=== PATIENT | male | born 1955 | race Caucasian/White ===

== ENCOUNTER 2020-09-22 15:52 | Emergency (ER) | payer OTHER, SELFPAY ==
[2020-09-22 16:00] VITALS: BP 189/94; PULSE 72; RESP 15; TEMP 36.9; O2SAT 98; BMI 25.6
--- NOTE | 2020-09-22 16:13 | ED.NAVMDI ---
HPI - Nausea/Vomiting/Diarrhea General Chief complaint: Nausea/Vomiting/Diarrhea Stated complaint: Throwing Up On Daily Basis, High HR Time Seen by Provider: 09/22/20 16:13 Source: patient Mode of arrival: Ambulatory Limitations: no limitations History of Present Illness HPI Narrative: Patient is a 65-year-old male here for evaluation of several months of was initially described as throwing up. It appears that he has had some chest congestion any gets quite a bit of saliva which causes him to ?[place] ?and cough which then eventually causes him to throw up. He also has apparently had episodes where his heart rate has been fast. He just completed a Holter monitor but does not have the results of this. He also has a CT scan scheduled ordered by his primary doctor in a couple days. He stated that he was told by his primary doctor to come to the emergency department if his symptoms do not resolve. Related Data Previous Rx's Medication Instructions Recorded lisinopril-hydrochlorothiazide 1 tab PO QAM #90 tab 11/18/16 metoprolol succinate [Toprol XL] 25 mg PO QAM #90 ter 11/18/16 Allergies Allergy/AdvReac Type Severity Reaction Status Date / Time Penicillins [PENICILLINS] Allergy Mild Verified 09/22/20 16:08 Review of Systems Constitutional Constitutional: Denies fever(s) and Denies headache(s) ENT Ears, Nose, Mouth, and Throat: Denies headache(s) Cardiovascular Cardiovascular: Denies chest pain Respiratory Respiratory: Reports cough and Reports excessive phlegm production Gastrointestinal Gastrointestinal: Denies change in bowel habits and Reports vomiting Genitourinary Genitourinary: Denies dysuria Genitourinary: Denies dysuria Musculoskeletal Musculoskeletal: Denies arthralgias and Denies myalgias Integumentary/Breasts Skin/Breast: Denies rash Neurologic Neurologic: Denies behavioral changes and Denies headache(s) Psychiatric Psychiatric: Denies behavioral changes Hematologic/Lymphatic On Anticoagulants: No Allergic/Immunologic Allergic/Immunologic: Denies urticaria Patient History Medical History HTN (hypertension) Family History Mother Diabetes mellitus Stroke Cancer Sister Cancer Social History marital status: household members: spouse occupational status: employed Smoking Status: Never smoker alcohol intake: current substance use type: does not use Smoking Status: Never smoker alcohol intake frequency: 3 or more drinks per day Substance Use Type: marijuana Exam Initial Vital Signs Initial Vital Signs: Vital Signs Temperature 98.5 F 09/22/20 16:00 Pulse Rate 72 09/22/20 16:00 Respiratory Rate 15 09/22/20 16:00 Blood Pressure 189/94 H 09/22/20 16:00 Pulse Oximetry 98 09/22/20 16:00 Const General: cooperative, comfortable, well developed and well groomed Limitations: mental status not altered HENMT Head: normal to inspection and normocephalic Resp Effort & Inspection: normal respiratory effort Auscultation: clear to auscultation bilaterally Cardio Rate: regular rate Rhythm: regular rhythm GI Inspection: non-distended Skin Lesions: no lesions Rashes: no rashes Neuro General: patient alert and patient awake Cognition: normal cognition Speech: speech normal Extrem General: capillary refill normal Psych Appearance: grossly normal and well kempt Course Orders Ordered: ED Orders 09/22/20 16:22 XR chest 1V Stat EKG-12 Lead Stat 09/22/20 17:07 Complete Blood Count AUTO DIFF Stat Comprehensive Metabolic Panel Stat Lipase Stat Vital Signs Vital signs: Vital Signs - 8 hr 09/22/20 16:00 09/22/20 16:23 09/22/20 16:30 Temperature 98.5 F Pulse Rate 72 67 65 Respiratory Rate 15 12 Blood Pressure 189/94 H Pulse Oximetry 98 98 98 09/22/20 17:00 Temperature Pulse Rate 62 Respiratory Rate 16 Blood Pressure Pulse Oximetry 96 MDM - Nausea/Vomiting/Diarrhea Lab Data Attestation: I reviewed the patient's lab results. Result diagrams: 09/22/20 17:07 09/22/20 17:07 Labs: Lab Results 09/22/20 09/22/20 Range/Units 17:07 17:07 WBC 5.1 (4.5-11.0) X10^3/uL RBC 4.69 (4.5-5.9) X10^6/uL Hgb 13.9 (13.5-17.5) g/dL Hct 42.4 (41-53) % MCV 90.5 (80-100) fL MCH 29.7 (26-34) PG MCHC 32.8 (30-36) % RDW 15.6 H (11.6-14.8) % Plt Count 159 (150-400) X10^3/uL Neut % (Auto) 62.7 (50-75) % Lymph % (Auto) 21.5 L (25-40) % Andrews % (Auto) 12.9 (3-14) % Eos % (Auto) 1.4 L (2-4) % Baso % (Auto) 1.5 (0-2) % Neut # (Auto) 3200 (7938-0515) /uL Lymph # (Auto) 1100 (6745-8754) /uL Andrews # (Auto) 700 (0-900) /uL Eos # (Auto) 100 (0-450) /uL Baso # (Auto) 100 (0-100) /uL Sodium 138 (137-145) mmol/L Potassium 4.5 (3.4-5.1) mmol/L Chloride 100 (98-107) mmol/L Carbon Dioxide 27 (22-32) mmol/L BUN 12 (9-20) mg/dL Creatinine 0.66 (0.66-1.25) mg/dL Estimated GFR > 60.0 (>60) mL/min BUN/Creatinine Ratio 18.2 (6-22) Glucose 122 H (80-110) mg/dL Calcium 9.2 (8.4-10.2) mg/dL Total Bilirubin 0.5 (0.2-1.3) mg/dL AST 148 H (17-59) IU/L ALT 135 H (<50) IU/L Alkaline Phosphatase 44 (38-126) U/L Total Protein 7.6 (6.3-8.2) g/dL Albumin 4.4 (3.5-5.0) g/dL Globulin 3.2 (1.7-4.1) g/dL Albumin/Globulin Ratio 1.4 (1.0-2.8) Lipase 455 H (23-300) U/L Imaging Data Chest x-ray: Radiologist's Impression: [address] [id number] ReportSigned Patient: Maximus Govea RMR#: [id number]: 6Acct:[id number]/Sex: 65 / MDate of Service: 09/22/20Loc: EDAccession Number: [id number] Procedure: XR chest 1V Ordering Provider: Frederick Nicholson D.O. PROCEDURE: XR CHEST 1V INDICATIONS: Chronic cough TECHNIQUE: One view of the chest was acquired. COMPARISON: None. FINDINGS: Surgical changes and devices: None. Lungs and pleura: Lungs are clear. No pleural effusions or pneumothorax. Mediastinum: Mediastinal contours appear normal. Heart size is normal. Bones and chest wall: No suspicious bony lesions. Overlying soft tissues appear unremarkable. IMPRESSION: No acute cardiopulmonary process demonstrated radiographically. Dictated by: Khang Gagnon M.D. on 09/22/2020 at 16:41 Approved by: Khang Gagnon M.D. on 09/22/2020 at 16:41 ECG Data Attestation: I personally reviewed and interpreted this ECG as follows: Prior ECG tracings: not available for review Interpretation: Sinus rhythm Ventricular rate is 64 Normal axis Normal QRS Normal QTC No ST T wave changes MDM Narrative Medical decision making narrative: Patient's symptoms have been going on for over a year. He has already been workup by his primary provider. He has a CT scan ordered already. His chest x-ray is unremarkable. His labs are relatively unremarkable. I feel no further workup is needed in the emergency department. He has already had a Holter monitor that is waiting for the results for. Patient was instructed to contact his primary keep all of his scheduled medical appointments. Discharge Plan Departure Patient Disposition: Home Clinical Impression: Cough, Vomiting Instructions: Cough (Alternative Therapy) Activity Restrictions/Additional Instructions: Recommend that you keep all of your scheduled medical appointments in continue to take all of your medications as directed. Contact your primary provider for follow-up Prescriptions: No Action lisinopril-hydrochlorothiazide 20 MG/12.5 MG tablet 1 tab PO QAM Qty: 90 RF: 1 metoprolol succinate [Toprol XL] 25 MG tablet extended release 24 hr 25 mg PO QAM Qty: 90 RF: 1 Referrals: Saud Bush MD [Primary Care Provider] -
--- NOTE | 2020-09-22 16:22 | DI.RAD.S_ITS ---
PROCEDURE: XR CHEST 1V INDICATIONS: Chronic cough TECHNIQUE: One view of the chest was acquired. COMPARISON: None. FINDINGS: Surgical changes and devices: None. Lungs and pleura: Lungs are clear. No pleural effusions or pneumothorax. Mediastinum: Mediastinal contours appear normal. Heart size is normal. Bones and chest wall: No suspicious bony lesions. Overlying soft tissues appear unremarkable. IMPRESSION: No acute cardiopulmonary process demonstrated radiographically. Dictated by: Khang Gagnon M.D. on 09/22/2020 at 16:41 Approved by: Khang Gagnon M.D. on 09/22/2020 at 16:41
[2020-09-22 16:23] VITALS: PULSE 67; O2SAT 98
[2020-09-22 16:30] VITALS: PULSE 65; RESP 12; O2SAT 98
[2020-09-22 17:00] VITALS: PULSE 62; RESP 16; O2SAT 96
[2020-09-22 17:18] LABS: Add Manual Diff / Slide Review NO; Basophils Absolute Auto 100 /uL (0-100); Basophils Percent Auto 1.5 % (0-2); Eosinophils Absolute Auto 100 /uL (0-450); Eosinophils Percent Auto 1.4 % (2-4); Hematocrit 42.4 % (41-53); Hemoglobin 13.9 g/dL (13.5-17.5); Lymphocytes Absolute Auto 1100 /uL (1100-4500); Lymphocytes Percent Auto 21.5 % (25-40); Mean Corpuscular HGB Conc 32.8 % (30-36); Mean Corpuscular Hemoglobin 29.7 PG (26-34); Mean Corpuscular Volume 90.5 fL (80-100); Monocytes Absolute Auto 700 /uL (0-900); Monocytes Percent Auto 12.9 % (3-14); Neutrophils Absolute Auto 3200 /uL (1500-7000); Neutrophils Percent Auto 62.7 % (50-75); Platelet Count 159 X10^3/uL (150-400); Red Blood Cell Count 4.69 X10^6/uL (4.5-5.9); Red Cell Distribution Width 15.6 % (11.6-14.8); White Blood Cell Count 5.1 X10^3/uL (4.5-11.0)
--- NOTE | 2020-09-22 17:28 | PC.NURSE ---
Reports coughing induced vomiting x 6 months. States It just comes out of nowhere. Denies pain.
[2020-09-22 17:30] VITALS: BP 168/86; PULSE 65; RESP 18; O2SAT 97
[2020-09-22 17:40] LABS: Alanine Aminotransferase 135 IU/L (<50); Albumin 4.4 g/dL (3.5-5.0); Albumin Globulin Ratio 1.4 (1.0-2.8); Alkaline Phosphatase 44 U/L (38-126); Aspartate Aminotransferase 148 IU/L (17-59); BUN Creatinine Ratio 18.2 (6-22); Bilirubin Total 0.5 mg/dL (0.2-1.3); Blood Urea Nitrogen 12 mg/dL (9-20); Calcium 9.2 mg/dL (8.4-10.2); Carbon Dioxide 27 mmol/L (22-32); Chloride 100 mmol/L (98-107); Estimated Glomerular Filt Rate > 60.0 mL/min (>60); Globulin 3.2 g/dL (1.7-4.1); Glucose 122 mg/dL (80-110); HEMOLYSIS < 15 (0-50); Lipase 455 U/L (23-300); Potassium 4.5 mmol/L (3.4-5.1); Sodium 138 mmol/L (137-145); Total Protein 7.6 g/dL (6.3-8.2)
[2020-09-22 18:00] VITALS: BP 173/97; PULSE 64; RESP 26; O2SAT 97
== END 2020-09-22 18:25 | disposition home or self-care (01) ==
PROVIDERS: Emergency Provider Emergency Medicine; PCP Family Medicine
DX: R05 Cough (principal); R11.10 Vomiting, unspecified
CPT/HCPCS: 36415; 71045; 80053; 83690; 85025; 93005; 93010; 99283; 99284

== ENCOUNTER → 2020-09-27 14:40 | Outpatient (CLI) | payer OTHER, SELFPAY ==
--- NOTE | 2020-09-27 14:41 | DI.CT.S_ITS ---
PROCEDURE: CT ABDOMEN PELVIS W CON INDICATIONS: Nausea with vomiting, unspecified TECHNIQUE: After the administration of oral and intravenous contrast, 5 mm thick sections acquired from the diaphragms to the symphysis. 5 mm thick coronal and sagittal reformats were performed. For radiation dose reduction, the following was used: automated exposure control, adjustment of mA and/or kV according to patient size. COMPARISON: None. FINDINGS: Image quality: Excellent. ABDOMEN: Lung bases: Lung bases are clear. Heart size is normal. Solid organs: Liver is normal in size and enhancement, but the liver is prominently fatty infiltrated. Gallbladder appears normal. Biliary system is non-dilated. Pancreas enhances normally. Spleen is normal in size and enhancement. No adrenal nodules. Kidneys are normal in size and enhancement, without hydronephrosis. Appears normal Peritoneum and bowel: Stomach, small bowel, and colon loops are normal in caliber and wall thickness. No free fluid or air. Nodes and vessels: No retroperitoneal or mesenteric adenopathy. Aorta and inferior vena cava are normal in caliber. Miscellaneous: No ventral hernias. PELVIS: Genitourinary: Bladder wall thickness is normal. Miscellaneous: No inguinal hernias or adenopathy. Bones: No suspicious bony lesions. No vertebral body compression fractures. IMPRESSION: Prominent hepatic steatosis, no evidence of portal hypertension at this time. No ascites found. Throughout the abdomen and pelvis there is no sign of intestinal obstruction or perforation. Biliary system appears normal. Dictated by: Abisai Oneill M.D. on 09/27/2020 at 17:14 Approved by: Abisai Oneill M.D. on 09/27/2020 at 17:16
== END ==
PROVIDERS: PCP Family Medicine; Referring Provider Family Medicine; Visit Provider Family Medicine
DX: R11.2 Nausea with vomiting, unspecified (principal); K76.0 Fatty (change of) liver, not elsewhere classified
CPT/HCPCS: 74177; Q9967

== ENCOUNTER → 2020-11-22 10:34 | Outpatient (CLI) | payer OTHER, SELFPAY ==
[2020-11-22 20:50] LABS: Alanine Aminotransferase 187 IU/L (<50); Albumin 4.5 g/dL (3.5-5.0); Albumin Globulin Ratio 1.5 (1.0-2.8); Alkaline Phosphatase 36 U/L (38-126); Aspartate Aminotransferase 304 IU/L (17-59); BUN Creatinine Ratio 27.6 (6-22); Bilirubin Total 1.1 mg/dL (0.2-1.3); Blood Urea Nitrogen 21 mg/dL (9-20); Calcium 9.7 mg/dL (8.4-10.2); Carbon Dioxide 26 mmol/L (22-32); Chloride 99 mmol/L (98-107); Cholesterol 233 mg/dL (140-199); Estimated Glomerular Filt Rate > 60.0 mL/min (>60); Globulin 3.1 g/dL (1.7-4.1); Glucose 130 mg/dL (80-110); HDL Cholesterol 52 mg/dL (40-60); LDL Cholesterol Calculated 153 mg/dL (<100); Potassium 4.1 mmol/L (3.4-5.1); Sodium 137 mmol/L (137-145); Total Protein 7.6 g/dL (6.3-8.2); Triglycerides 140 mg/dL (35-150)
[2020-11-22 20:56] LABS: Microalbumin Urine Random 1.5 mg/dL (0-1.6)
[2020-11-22 20:57] LABS: Add Manual Diff / Slide Review NO; Basophils Absolute Auto 100 /uL (0-100); Basophils Percent Auto 1.3 % (0-2); Eosinophils Absolute Auto 100 /uL (0-450); Eosinophils Percent Auto 2.4 % (2-4); Hematocrit 41.4 % (41-53); Hemoglobin 13.5 g/dL (13.5-17.5); Lymphocytes Absolute Auto 700 /uL (1100-4500); Lymphocytes Percent Auto 16.9 % (25-40); Mean Corpuscular HGB Conc 32.7 % (30-36); Mean Corpuscular Hemoglobin 30.5 PG (26-34); Mean Corpuscular Volume 93.3 fL (80-100); Monocytes Absolute Auto 700 /uL (0-900); Monocytes Percent Auto 15.2 % (3-14); Neutrophils Absolute Auto 2800 /uL (1500-7000); Neutrophils Percent Auto 64.2 % (50-75); Platelet Count 140 X10^3/uL (150-400); Red Blood Cell Count 4.44 X10^6/uL (4.5-5.9); Red Cell Distribution Width 15.5 % (11.6-14.8); White Blood Cell Count 4.4 X10^3/uL (4.5-11.0)
[2020-11-22 20:59] LABS: HEMOLYSIS 73 (0-50)
[2020-11-22 21:35] LABS: Thyroid Stimulating Hormone 1.06 uIU/mL (0.47-4.68)
[2020-11-22 21:47] LABS: Microalbumi Creatinin Ratio Ur 4.2 ug/mg CR (<30)
== END ==
PROVIDERS: PCP Family Medicine; Visit Provider Physician Assistant
DX: G47.33 Obstructive sleep apnea (adult) (pediatric) (principal); I10 Essential (primary) hypertension; I48.0 Paroxysmal atrial fibrillation; R11.2 Nausea with vomiting, unspecified; R53.83 Other fatigue; R74.8 Abnormal levels of other serum enzymes
CPT/HCPCS: 80053; 80061; 82043; 82570; 84443; 85025

== ENCOUNTER → 2021-09-09 10:39 | Outpatient (CLI) | payer MEDICARE, SELFPAY ==
[2021-09-09 19:28] LABS: Add Manual Diff / Slide Review NO; Basophils Absolute Auto 0 /uL (0-100); Basophils Percent Auto 0.7 % (0-2); Eosinophils Absolute Auto 100 /uL (0-450); Eosinophils Percent Auto 2.7 % (2-4); Hematocrit 45.2 % (41-53); Hemoglobin 15.3 g/dL (13.5-17.5); Lymphocytes Absolute Auto 1100 /uL (1100-4500); Lymphocytes Percent Auto 23.9 % (25-40); Mean Corpuscular HGB Conc 33.9 % (30-36); Mean Corpuscular Hemoglobin 31.8 PG (26-34); Mean Corpuscular Volume 93.8 fL (80-100); Monocytes Absolute Auto 500 /uL (0-900); Monocytes Percent Auto 11.5 % (3-14); Neutrophils Absolute Auto 2900 /uL (1500-7000); Neutrophils Percent Auto 61.2 % (50-75); Platelet Count 138 X10^3/uL (150-400); Red Blood Cell Count 4.82 X10^6/uL (4.5-5.9); Red Cell Distribution Width 13.4 % (11.6-14.8); White Blood Cell Count 4.7 X10^3/uL (4.5-11.0)
[2021-09-09 19:41] LABS: Hemoglobin A1C% w Est Avg Glu 6.3 % (4.0-6.0)
[2021-09-09 19:45] LABS: Gamma Glutamyl Transpeptidase 96 U/L (15-73)
[2021-09-09 19:47] LABS: Alanine Aminotransferase 78 IU/L (<50); Albumin 4.5 g/dL (3.5-5.0); Albumin Globulin Ratio 1.4 (1.0-2.8); Alkaline Phosphatase 44 U/L (38-126); Aspartate Aminotransferase 81 IU/L (17-59); BUN Creatinine Ratio 15.2 (6-22); Bilirubin Total 0.7 mg/dL (0.2-1.3); Blood Urea Nitrogen 12 mg/dL (9-20); Calcium 9.6 mg/dL (8.4-10.2); Carbon Dioxide 35 mmol/L (22-32); Chloride 98 mmol/L (98-107); Estimated Glomerular Filt Rate > 60.0 mL/min (>60); Globulin 3.3 g/dL (1.7-4.1); Glucose 139 mg/dL (80-110); HEMOLYSIS < 15 (0-50); Lipase 302 U/L (23-300); Potassium 4.2 mmol/L (3.4-5.1); Sodium 138 mmol/L (137-145); Total Protein 7.8 g/dL (6.3-8.2)
== END ==
PROVIDERS: PCP Family Medicine; Visit Provider Family Medicine
DX: R74.8 Abnormal levels of other serum enzymes (principal); R73.9 Hyperglycemia, unspecified; F10.21 Alcohol dependence, in remission; I48.0 Paroxysmal atrial fibrillation
CPT/HCPCS: 80053; 82977; 83036; 83690; 85025

== ENCOUNTER → 2021-12-09 12:46 | Outpatient (CLI) | payer MEDICARE, SELFPAY ==
[2021-12-09 19:36] LABS: Hemoglobin A1C% w Est Avg Glu 6.5 % (4.0-6.0)
[2021-12-09 19:37] LABS: Alanine Aminotransferase 115 IU/L (<50); Albumin 4.6 g/dL (3.5-5.0); Albumin Globulin Ratio 1.5 (1.0-2.8); Alkaline Phosphatase 53 U/L (38-126); Aspartate Aminotransferase 132 IU/L (17-59); BUN Creatinine Ratio 17.1 (6-22); Bilirubin Total 0.7 mg/dL (0.2-1.3); Blood Urea Nitrogen 14 mg/dL (9-20); Calcium 9.6 mg/dL (8.4-10.2); Carbon Dioxide 29 mmol/L (22-32); Chloride 99 mmol/L (98-107); Cholesterol 277 mg/dL (140-199); Estimated Glomerular Filt Rate > 60 mL/min (>60); Glucose 139 mg/dL (80-110); HDL Cholesterol 54 mg/dL (40-60); HEMOLYSIS < 15 (0-50); LDL Cholesterol Calculated 164 mg/dL (<100); Potassium 3.8 mmol/L (3.4-5.1); Sodium 138 mmol/L (137-145); Total Protein 7.6 g/dL (6.3-8.2); Triglycerides 296 mg/dL (35-150)
[2021-12-09 19:42] LABS: Add Manual Diff / Slide Review NO; Basophils Absolute Auto 100 /uL (0-100); Basophils Percent Auto 1.1 % (0-2); Eosinophils Absolute Auto 100 /uL (0-450); Eosinophils Percent Auto 1.6 % (2-4); Hemoglobin 15.8 g/dL (13.5-17.5); Lymphocytes Absolute Auto 1200 /uL (1100-4500); Mean Corpuscular HGB Conc 33.7 % (30-36); Mean Corpuscular Hemoglobin 31.7 PG (26-34); Mean Corpuscular Volume 94.2 fL (80-100); Monocytes Absolute Auto 600 /uL (0-900); Monocytes Percent Auto 9.5 % (3-14); Neutrophils Absolute Auto 4000 /uL (1500-7000); Neutrophils Percent Auto 67.8 % (50-75); Platelet Count 166 X10^3/uL (150-400); Red Blood Cell Count 4.99 X10^6/uL (4.5-5.9); Red Cell Distribution Width 13.7 % (11.6-14.8)
[2021-12-09 20:29] LABS: Vitamin B12 737 pg/mL (239-931)
== END ==
PROVIDERS: PCP Family Medicine; Visit Provider Family Medicine
DX: E78.2 Mixed hyperlipidemia (principal); R73.9 Hyperglycemia, unspecified; G47.33 Obstructive sleep apnea (adult) (pediatric); I10 Essential (primary) hypertension; I48.0 Paroxysmal atrial fibrillation; R74.8 Abnormal levels of other serum enzymes; Z82.3 Family history of stroke
CPT/HCPCS: 80053; 80061; 82607; 83036; 85025

== ENCOUNTER → 2022-07-17 13:30 | Outpatient (CLI) | payer MEDICARE, SELFPAY ==
[2022-07-17 20:02] LABS: Add Manual Diff / Slide Review NO; Alanine Aminotransferase 41 IU/L (<50); Albumin 4.5 g/dL (3.5-5.0); Albumin Globulin Ratio 1.3 (1.0-2.8); Alkaline Phosphatase 55 U/L (38-126); Aspartate Aminotransferase 60 IU/L (17-59); BUN Creatinine Ratio 12.7 (6-22); Basophils Absolute Auto 100 /uL (0-100); Basophils Percent Auto 1.1 % (0-2); Bilirubin Total 0.9 mg/dL (0.2-1.3); Blood Urea Nitrogen 9 mg/dL (9-20); Calcium 9.5 mg/dL (8.4-10.2); Carbon Dioxide 23 mmol/L (22-32); Chloride 105 mmol/L (98-107); Cholesterol 174 mg/dL (140-199); Eosinophils Absolute Auto 100 /uL (0-450); Eosinophils Percent Auto 1.6 % (2-4); Estimated Glomerular Filt Rate > 60 mL/min (>60); Globulin 3.6 g/dL (1.7-4.1); Glucose 120 mg/dL (80-110); HDL Cholesterol 54 mg/dL (40-60); HEMOLYSIS < 15 (0-50); Hematocrit 41.4 % (41-53); Hemoglobin 13.2 g/dL (13.5-17.5); LDL Cholesterol Calculated 89 mg/dL (<100); Lymphocytes Absolute Auto 1400 /uL (1100-4500); Lymphocytes Percent Auto 20.3 % (25-40); Mean Corpuscular HGB Conc 31.9 % (30-36); Mean Corpuscular Hemoglobin 26.3 PG (26-34); Mean Corpuscular Volume 82.6 fL (80-100); Monocytes Absolute Auto 600 /uL (0-900); Monocytes Percent Auto 8.6 % (3-14); Neutrophils Absolute Auto 4600 /uL (1500-7000); Neutrophils Percent Auto 68.4 % (50-75); Platelet Count 157 X10^3/uL (150-400); Potassium 4.3 mmol/L (3.4-5.1); Red Blood Cell Count 5.01 X10^6/uL (4.5-5.9); Red Cell Distribution Width 18.9 % (11.6-14.8); Sodium 138 mmol/L (137-145); Total Protein 8.1 g/dL (6.3-8.2); Triglycerides 157 mg/dL (35-150); White Blood Cell Count 6.7 X10^3/uL (4.5-11.0)
[2022-07-17 20:08] LABS: Hemoglobin A1C% w Est Avg Glu 6.9 % (4.0-6.0)
[2022-07-17 20:36] LABS: TSH w/ Reflex to FT4 1.48 uIU/mL (0.47-4.68)
[2022-07-17 20:52] LABS: Creatinine Urine Random 132.8 mg/dL
[2022-07-17 20:57] LABS: Microalbumi Creatinin Ratio Ur 14.3 ug/mg CR (<30); Microalbumin Urine Random 1.9 mg/dL (0-1.6)
== END ==
PROVIDERS: PCP Family Medicine; Visit Provider Family Medicine
DX: E11.9 Type 2 diabetes mellitus without complications (principal); E78.2 Mixed hyperlipidemia; F32.A Depression, unspecified; I10 Essential (primary) hypertension; I21.4 Non-ST elevation (NSTEMI) myocardial infarction; I48.0 Paroxysmal atrial fibrillation; R74.8 Abnormal levels of other serum enzymes
CPT/HCPCS: 80053; 80061; 82043; 82570; 83036; 84443; 85025

== ENCOUNTER → 2022-11-12 11:46 | Outpatient (CLI) | payer MEDICARE, SELFPAY ==
[2022-11-12 19:59] LABS: Alanine Aminotransferase 54 IU/L (<50); Albumin 4.5 g/dL (3.5-5.0); Albumin Globulin Ratio 1.5 (1.0-2.8); Alkaline Phosphatase 49 U/L (38-126); Aspartate Aminotransferase 74 IU/L (17-59); BUN Creatinine Ratio 12.8 (6-22); Bilirubin Total 1.1 mg/dL (0.2-1.3); Blood Urea Nitrogen 10 mg/dL (9-20); Calcium 10.1 mg/dL (8.4-10.2); Carbon Dioxide 27 mmol/L (22-32); Chloride 98 mmol/L (98-107); Cholesterol 149 mg/dL (140-199); Estimated Glomerular Filt Rate > 60 mL/min (>60); Globulin 3.1 g/dL (1.7-4.1); Glucose 154 mg/dL (80-110); HDL Cholesterol 48 mg/dL (40-60); HEMOLYSIS 31 (0-50); LDL Cholesterol Calculated 62 mg/dL (<100); Potassium 4.3 mmol/L (3.4-5.1); Sodium 136 mmol/L (137-145); Total Protein 7.6 g/dL (6.3-8.2); Triglycerides 196 mg/dL (35-150)
[2022-11-12 20:24] LABS: Creatinine Urine Random 71.8 mg/dL
[2022-11-12 20:26] LABS: Add Manual Diff / Slide Review NO; Basophils Absolute Auto 100 /uL (0-100); Basophils Percent Auto 1.1 % (0-2); Eosinophils Absolute Auto 100 /uL (0-450); Eosinophils Percent Auto 1.5 % (2-4); Hematocrit 39.6 % (41-53); Hemoglobin 12.5 g/dL (13.5-17.5); Lymphocytes Absolute Auto 1100 /uL (1100-4500); Lymphocytes Percent Auto 18.7 % (25-40); Mean Corpuscular HGB Conc 31.6 % (30-36); Mean Corpuscular Hemoglobin 26.1 PG (26-34); Mean Corpuscular Volume 82.9 fL (80-100); Monocytes Absolute Auto 400 /uL (0-900); Monocytes Percent Auto 7.2 % (3-14); Neutrophils Absolute Auto 4200 /uL (1500-7000); Neutrophils Percent Auto 71.5 % (50-75); Platelet Count 184 X10^3/uL (150-400); Red Blood Cell Count 4.78 X10^6/uL (4.5-5.9); Red Cell Distribution Width 16.5 % (11.6-14.8); White Blood Cell Count 5.8 X10^3/uL (4.5-11.0)
[2022-11-12 20:30] LABS: Microalbumi Creatinin Ratio Ur 101.6 ug/mg CR (<30); Microalbumin Urine Random 7.3 mg/dL (0-1.6)
[2022-11-13 23:19] LABS: x Labcorp Estim. Avg Glu (eAG) 160 mg/dL (.); x Labcorp Hemoglobin A1c 7.2 % (4.8-5.6)
== END ==
PROVIDERS: PCP Family Medicine; Visit Provider Family Medicine
DX: E11.9 Type 2 diabetes mellitus without complications (principal); E78.2 Mixed hyperlipidemia; I10 Essential (primary) hypertension; I25.2 Old myocardial infarction; I48.91 Unspecified atrial fibrillation; R74.8 Abnormal levels of other serum enzymes
CPT/HCPCS: 80053; 80061; 82043; 82570; 83036; 85025

== ENCOUNTER → 2023-06-24 11:25 | Outpatient (CLI) | payer MEDICARE, SELFPAY ==
[2023-06-24 19:40] LABS: Add Manual Diff / Slide Review NO; Basophils Absolute Auto 100 /uL (0-100); Basophils Percent Auto 1.3 % (0-2); Eosinophils Absolute Auto 100 /uL (0-450); Eosinophils Percent Auto 2.3 % (2-4); Hematocrit 39.2 % (41-53); Hemoglobin 12.7 g/dL (13.5-17.5); Lymphocytes Absolute Auto 900 /uL (1100-4500); Lymphocytes Percent Auto 15.1 % (25-40); Mean Corpuscular HGB Conc 32.3 % (30-36); Mean Corpuscular Volume 83.7 fL (80-100); Monocytes Absolute Auto 600 /uL (0-900); Monocytes Percent Auto 10.2 % (3-14); Neutrophils Absolute Auto 4300 /uL (1500-7000); Neutrophils Percent Auto 71.1 % (50-75); Platelet Count 180 X10^3/uL (150-400); Red Blood Cell Count 4.68 X10^6/uL (4.5-5.9); Red Cell Distribution Width 15.9 % (11.6-14.8); White Blood Cell Count 6.1 X10^3/uL (4.5-11.0)
[2023-06-24 19:47] LABS: Hemoglobin A1C% w Est Avg Glu 7.1 % (4.0-6.0)
[2023-06-24 19:59] LABS: Alanine Aminotransferase 57 IU/L (<50); Albumin 4.4 g/dL (3.5-5.0); Albumin Globulin Ratio 1.4 (1.0-2.8); Alkaline Phosphatase 53 U/L (38-126); Aspartate Aminotransferase 94 IU/L (17-59); BUN Creatinine Ratio 16.9 (6-22); Bilirubin Total 0.8 mg/dL (0.2-1.3); Blood Urea Nitrogen 12 mg/dL (9-20); Calcium 9.3 mg/dL (8.4-10.2); Carbon Dioxide 22 mmol/L (22-32); Chloride 100 mmol/L (98-107); Cholesterol 128 mg/dL (140-199); Estimated Glomerular Filt Rate > 60 mL/min (>60); Globulin 3.2 g/dL (1.7-4.1); Glucose 152 mg/dL (80-110); HDL Cholesterol 39 mg/dL (40-60); HEMOLYSIS < 15 (0-50); LDL Cholesterol Calculated 59 mg/dL (<100); Potassium 4.7 mmol/L (3.4-5.1); Sodium 134 mmol/L (137-145); Total Protein 7.6 g/dL (6.3-8.2); Triglycerides 152 mg/dL (35-150)
[2023-06-25 15:53] LABS: Microalbumin Urine Random 11.2 mg/dL (0-1.6)
[2023-06-25 15:58] LABS: Creatinine Urine Random 170.4 mg/dL; Microalbumi Creatinin Ratio Ur 65.7 ug/mg CR (<30)
== END ==
PROVIDERS: PCP Family Medicine; Visit Provider Family Medicine
DX: E11.9 Type 2 diabetes mellitus without complications (principal); E78.2 Mixed hyperlipidemia; I10 Essential (primary) hypertension
CPT/HCPCS: 80053; 80061; 82043; 82570; 83036; 85025

== ENCOUNTER → 2023-10-14 09:21 | Outpatient (CLI) | payer MEDICARE, SELFPAY ==
[2023-10-14 20:42] LABS: Add Manual Diff / Slide Review NO; Basophils Absolute Auto 100 /uL (0-100); Basophils Percent Auto 1.8 % (0-2); Eosinophils Absolute Auto 100 /uL (0-450); Eosinophils Percent Auto 2.1 % (2-4); Hematocrit 38.8 % (41-53); Hemoglobin 12.3 g/dL (13.5-17.5); Lymphocytes Absolute Auto 1200 /uL (1100-4500); Mean Corpuscular HGB Conc 31.7 % (30-36); Mean Corpuscular Hemoglobin 25.3 PG (26-34); Mean Corpuscular Volume 79.6 fL (80-100); Monocytes Absolute Auto 600 /uL (0-900); Monocytes Percent Auto 10.3 % (3-14); Neutrophils Absolute Auto 3800 /uL (1500-7000); Neutrophils Percent Auto 64.8 % (50-75); Platelet Count 204 X10^3/uL (150-400); Red Blood Cell Count 4.88 X10^6/uL (4.5-5.9); White Blood Cell Count 5.8 X10^3/uL (4.5-11.0)
[2023-10-14 20:45] LABS: HEMOLYSIS < 15 (0-50)
[2023-10-14 20:50] LABS: Alanine Aminotransferase 82 IU/L (<50); Albumin 4.2 g/dL (3.5-5.0); Albumin Globulin Ratio 1.3 (1.0-2.8); Alkaline Phosphatase 57 U/L (38-126); Aspartate Aminotransferase 108 IU/L (17-59); BUN Creatinine Ratio 12.8 (6-22); Bilirubin Total 0.9 mg/dL (0.2-1.3); Blood Urea Nitrogen 10 mg/dL (9-20); Calcium 9.3 mg/dL (8.4-10.2); Carbon Dioxide 26 mmol/L (22-32); Chloride 99 mmol/L (98-107); Cholesterol 150 mg/dL (140-199); Estimated Glomerular Filt Rate > 60 mL/min (>60); Globulin 3.3 g/dL (1.7-4.1); Glucose 138 mg/dL (80-110); HDL Cholesterol 41 mg/dL (40-60); LDL Cholesterol Calculated 87 mg/dL (<100); Potassium 4.5 mmol/L (3.4-5.1); Sodium 136 mmol/L (137-145); Total Protein 7.5 g/dL (6.3-8.2); Triglycerides 111 mg/dL (35-150)
[2023-10-14 20:52] LABS: Hemoglobin A1C% w Est Avg Glu 6.2 % (4.0-6.0)
[2023-10-14 21:28] LABS: Creatinine Urine Random 262.1 mg/dL
[2023-10-14 22:01] LABS: Microalbumi Creatinin Ratio Ur 96.1 ug/mg CR (<30); Microalbumin Urine Random 25.2 mg/dL (0-1.6)
[2023-10-14 22:54] LABS: HEMOLYSIS < 15 (0-50); Iron 54 ug/dL (49-181)
[2023-10-14 23:06] LABS: Percent Iron Saturation 11 % (20-50); Total Iron Binding Capacity 488 ug/dL (261-462); Transferrin 394 mg/dL (206-381)
[2023-10-15 00:04] LABS: TSH w/ Reflex to FT4 2.22 uIU/mL (0.47-4.68)
[2023-10-15 12:33] LABS: Vitamin B12 709 pg/mL (239-931)
== END ==
PROVIDERS: PCP Family Medicine; Visit Provider Family Medicine
DX: D64.9 Anemia, unspecified (principal); E11.9 Type 2 diabetes mellitus without complications; D72.810 Lymphocytopenia; E78.2 Mixed hyperlipidemia; Z80.0 Family history of malignant neoplasm of digestive organs; I10 Essential (primary) hypertension; I25.2 Old myocardial infarction
CPT/HCPCS: 80053; 80061; 82043; 82570; 82607; 83036; 83540; 83550; 84443; 85025

== ENCOUNTER → 2024-04-29 09:34 | Outpatient (CLI) | payer MEDICARE, SELFPAY ==
[2024-04-29 18:49] LABS: Add Manual Diff / Slide Review NO; Basophils Absolute Auto 100 /uL (0-100); Basophils Percent Auto 1.1 % (0-2); Eosinophils Absolute Auto 100 /uL (0-450); Eosinophils Percent Auto 1.8 % (2-4); Hematocrit 36.8 % (41-53); Hemoglobin 11.1 g/dL (13.5-17.5); Lymphocytes Absolute Auto 1000 /uL (1100-4500); Mean Corpuscular HGB Conc 30.2 % (30-36); Mean Corpuscular Hemoglobin 22.8 PG (26-34); Mean Corpuscular Volume 75.5 fL (80-100); Monocytes Absolute Auto 500 /uL (0-900); Monocytes Percent Auto 7.9 % (3-14); Neutrophils Absolute Auto 5200 /uL (1500-7000); Neutrophils Percent Auto 75.2 % (50-75); Platelet Count 203 X10^3/uL (150-400); Red Blood Cell Count 4.87 X10^6/uL (4.5-5.9); White Blood Cell Count 6.9 X10^3/uL (4.5-11.0)
[2024-04-29 19:00] LABS: Cholesterol 129 mg/dL (140-199); HDL Cholesterol 40 mg/dL (40-60); LDL Cholesterol Calculated 69 mg/dL (<100); Triglycerides 99 mg/dL (35-150)
[2024-04-29 19:04] LABS: Hemoglobin A1C% w Est Avg Glu 6.7 % (4.0-6.0)
[2024-04-29 19:20] LABS: Creatinine Urine Random 216.01 mg/dL
[2024-04-29 20:21] LABS: Microalbumin Urine Random 63.1 mg/dL (0-1.6)
== END ==
PROVIDERS: PCP Family Medicine; Referring Provider Family Medicine; Visit Provider Family Medicine
DX: E11.9 Type 2 diabetes mellitus without complications (principal); D64.9 Anemia, unspecified; Z68.33 Body mass index [BMI] 33.0-33.9, adult; R74.8 Abnormal levels of other serum enzymes; I10 Essential (primary) hypertension; E78.2 Mixed hyperlipidemia
CPT/HCPCS: 80061; 82043; 82570; 83036; 85025

== ENCOUNTER → 2024-05-23 13:04 | Outpatient (CLI) | payer MEDICARE, SELFPAY ==
[2024-05-23 19:29] LABS: Alanine Aminotransferase 56 IU/L (<50); Albumin 4.2 g/dL (3.5-5.0); Albumin Globulin Ratio 1.1 (1.0-2.8); Alkaline Phosphatase 54 U/L (38-126); Amylase 96 U/L (30-110); Aspartate Aminotransferase 123 IU/L (17-59); Bilirubin Total 0.8 mg/dL (0.2-1.3); Bilirubin Unconjugated 0.4 mg/dL (0.0-1.1); Globulin 3.7 g/dL (1.7-4.1); HEMOLYSIS 20 (0-50); Lipase 574 U/L (23-300); Total Protein 7.9 g/dL (6.3-8.2)
== END ==
PROVIDERS: PCP Family Medicine; Visit Provider Family Medicine
DX: E11.9 Type 2 diabetes mellitus without complications (principal); K76.0 Fatty (change of) liver, not elsewhere classified
CPT/HCPCS: 80076; 82150; 83690

== ENCOUNTER → 2024-11-09 13:42 | Outpatient (CLI) | payer MEDICARE, SELFPAY ==
--- NOTE | 2024-11-09 13:43 | DI.CT.S_ITS ---
PROCEDURE: CT CHEST WO CON INDICATIONS: folow up pulm nodule TECHNIQUE: Noncontrast 5 mm thick sections acquired from the pulmonary apices to the posterior costophrenic angles. 1 mm lung window, 5 mm thick coronal and sagittal and 7 mm axial MIP reformats were then acquired. For radiation dose reduction, the following was used: automated exposure control, adjustment of mA and/or kV according to patient size. COMPARISON: Outside Facility, CT, CT ANGIO CHEST PE PROTOCOL, 12/25/2021, 14:49. FINDINGS: Image quality: Diagnostic. Lower Neck: No enlarged lymph nodes. Thyroid: No thyroid nodules which require sonographic follow up, per consensus guidelines. Axillae: No enlarged lymph nodes. Chest Wall: Unremarkable. Bones: Unremarkable. Lungs and Pleura: No pneumothorax or pleural effusions. Stable 6 mm mid nodule at the right lung apex (3/79). 2 adjacent small nodules at the medial left lung apex, larger of which measures approximately 4 mm (3/65). These nodules were likely present on the prior exam by less prominent due to slice thickness. Tiny calcified granuloma in the right upper lobe. No suspicious new or enlarging pulmonary nodule. No consolidation or suspicious nodules. Heart: Heart size is normal. No pericardial effusion. Thoracic Vessels: The aorta and pulmonary arteries demonstrate normal size. Mediastinum and Minda: No enlarged lymph nodes. Esophagus: No wall thickening. No hiatal hernia. Upper Abdomen: Punctate nonobstructing right renal calculus. Visualized upper abdomen solid organs and bowel loops appear normal. IMPRESSION: 1. Stable right lung apex pulmonary nodule, which is considered benign. 2. No acute cardiopulmonary abnormality. Approved by: Alfonso Olivas M.D. on 11/09/2024 at 15:49
== END ==
LOC: CT 13:43
PROVIDERS: PCP Family Medicine; Referring Provider Family Medicine; Visit Provider Family Medicine
DX: R91.8 Other nonspecific abnormal finding of lung field (principal); N20.0 Calculus of kidney
CPT/HCPCS: 71250

== ENCOUNTER → 2024-12-29 10:33 | Outpatient (CLI) | payer MEDICARE, SELFPAY ==
[2024-12-29 19:37] LABS: Add Manual Diff / Slide Review NO; Basophils Absolute Auto 100 /uL (0-100); Basophils Percent Auto 1.8 % (0-2); Eosinophils Absolute Auto 200 /uL (0-450); Eosinophils Percent Auto 3.7 % (2-4); Hematocrit 41.2 % (41-53); Hemoglobin 12.6 g/dL (13.5-17.5); Lymphocytes Absolute Auto 1000 /uL (1100-4500); Lymphocytes Percent Auto 20.8 % (25-40); Mean Corpuscular HGB Conc 30.6 % (30-36); Mean Corpuscular Hemoglobin 22.7 PG (26-34); Mean Corpuscular Volume 74.2 fL (80-100); Monocytes Absolute Auto 500 /uL (0-900); Monocytes Percent Auto 10.2 % (3-14); Neutrophils Absolute Auto 3200 /uL (1500-7000); Neutrophils Percent Auto 63.5 % (50-75); Platelet Count 189 X10^3/uL (150-400); Red Blood Cell Count 5.55 X10^6/uL (4.5-5.9); Red Cell Distribution Width 19.8 % (11.6-14.8)
[2024-12-29 19:50] LABS: Alanine Aminotransferase 90 IU/L (<50); Albumin 4.4 g/dL (3.5-5.0); Albumin Globulin Ratio 1.3 (1.0-2.8); Alkaline Phosphatase 62 U/L (38-126); Aspartate Aminotransferase 143 IU/L (17-59); BUN Creatinine Ratio 14.1 (6-22); Bilirubin Total 1.4 mg/dL (0.2-1.3); Blood Urea Nitrogen 11 mg/dL (9-20); Calcium 9.2 mg/dL (8.4-10.2); Carbon Dioxide 23 mmol/L (22-32); Chloride 100 mmol/L (98-107); Cholesterol 199 mg/dL (140-199); Estimated Glomerular Filt Rate > 60 mL/min (>60); Globulin 3.3 g/dL (1.7-4.1); Glucose 147 mg/dL (70-99); HDL Cholesterol 43 mg/dL (40-60); HEMOLYSIS 21 (0-50); LDL Cholesterol Calculated 131 mg/dL (<100); Potassium 4.8 mmol/L (3.4-5.1); Sodium 135 mmol/L (137-145); Total Protein 7.7 g/dL (6.3-8.2); Triglycerides 126 mg/dL (35-150)
[2024-12-29 19:51] LABS: Creatinine Urine Random 213.71 mg/dL
[2024-12-29 19:58] LABS: Microalbumin Urine Random 11.6 mg/dL (0-1.6)
[2024-12-29 20:20] LABS: Prostate Specific Antigen Scrn 1.61 ng/mL (0.1-4.0)
[2024-12-29 20:24] LABS: Hemoglobin A1C% w Est Avg Glu 6.3 % (4.0-6.0)
== END ==
PROVIDERS: PCP Family Medicine; Visit Provider Family Medicine
DX: D64.9 Anemia, unspecified (principal); I25.10 Atherosclerotic heart disease of native coronary artery without angina pectoris; Z12.5 Encounter for screening for malignant neoplasm of prostate; E11.9 Type 2 diabetes mellitus without complications; R74.8 Abnormal levels of other serum enzymes; I10 Essential (primary) hypertension; K76.0 Fatty (change of) liver, not elsewhere classified; E78.2 Mixed hyperlipidemia
CPT/HCPCS: 80053; 80061; 82043; 82570; 83036; 85025; G0103

== ENCOUNTER → 2025-05-08 14:41 | Outpatient (CLI) | payer MEDICARE, SELFPAY | LOC: RESP 14:42 | PROVIDERS: PCP Family Medicine; Referring Provider Family Medicine; Visit Provider Family Medicine | DX: R06.09 Other forms of dyspnea (principal); R05.3 Chronic cough; J45.40 Moderate persistent asthma, uncomplicated; D64.9 Anemia, unspecified; G47.33 Obstructive sleep apnea (adult) (pediatric); J98.8 Other specified respiratory disorders; R94.2 Abnormal results of pulmonary function studies | CPT/HCPCS: 94060; 94726; 94729 ==

== ENCOUNTER 2025-06-19 18:45 | Inpatient (IN) | payer MEDICARE, SELFPAY ==
[2025-06-19] VITALS (35 sets, daily range): BP systolic 113–185; BP diastolic 64–111; PULSE 65–185; RESP 16–36; TEMP 37; O2SAT 88–98; BMI 26.2
--- NOTE | 2025-06-19 19:01 | ED_ITS ---
HPI - General Adult <April Heller MD - Last Filed: 06/19/25 19:22> General Chief complaint: Arrhythmia/Palpitations Stated complaint: Rapid a.fib. Time Seen by Provider: 06/19/25 18:46 History of Present Illness HPI narrative: From [facility], rapid AFib, anticoagulated, productive cough with baseline significant cough, no fevers significant increasing exertional dyspnea over the last number of days is not aware that he is tachycardic Related Data Previous Rx's ?Medication ?Instructions ?Recorded ezetimibe 10 mg tablet 10 mg PO DAILY #90 tabs 12/04 08/30 pravastatin 20 mg tablet 20 mg PO BEDTIME #90 tabs diltiazem HCl 30 mg tablet 30 mg PO BID #180 tabs 03/30 mometasone-formoterol HFA 200 2 puff inhalation BID #8 .8 grams 04/12/25 mcg-5 mcg/actuation aerosol inhaler (Dulera) metoprolol succinate 100 mg 100 mg PO BID #180 tabs tablet,extended release 24 hr apixaban 5 mg tablet (Eliquis) 5 mg PO BID #180 tabs 1 07/16/24 albuterol sulfate 90 mcg/actuation 2 puff inhalation Q 6H PRN 05/31/25 aerosol inhaler shortness of breath or wheez ing #8.5 grams fluticasone fur. 200 mcg-umeclid 1 inh inhalation DANIEL Y #60 ea 05/31/25 62.5 mcg-vilant 25 mcg inhalat.powder (Trelegy Ellipta) tirzepatide 5 mg/0.5 mL 5 mg (0.5 mL) SUBCUT QWEEK # 2 mL 06/08/25 subcutaneous pen injector (Kjunnisha) Allergies Allergy/AdvReac Type Severity Reaction Status Date / Time Penicillins (PENICILLINS) Allergy Mild Unknown, Verified 05/31/25 11:50 advised as a child <Esvin Andrade DO - Last Filed: 06/20/25 03:51> History of Present Illness HPI narrative: Patient is a 70-year-old male with a past medical history of AFib on Eliquis, with a history of chronic cough nonproductive comes into the ED From [facility], via EMS, patient came in complaining of increasing shortness of breath and orthopnea over the last few days, according to medics patient was found to be in AFib in the 140s, they did give 15 mg IV metoprolol however due to persistent tachycardia and symptoms patient was brought into the emergency department. At time of evaluation patient is not complaining of any other symptoms such as headache visual disturbance chest pain fever chills nausea vomiting abdominal pain or any other GI/ symptoms time. He was in rapid AFib, he was started on a Cardizem drip immediately upon arrival given the fact that patient was already status post 15 mg IV metoprolol prior to arrival. Patient actually denies any palpitations and/or tachycardia. Review of Systems <Esvin Andrade DO - Last Filed: 06/20/25 03:51> Review of Systems Narrative: General: Denies fever, chills, weight loss HEENT: Denies headache, eye drainage, eye irritation, head trauma, sore throat, voice change Cardiovascular: Denies any chest pain, palpitations, tachycardia Respiratory: Positive shortness of breath, denies cough, wheeze, stridor GI/: Denies any abdominal pain, nausea, vomiting, diarrhea, bright red blood per rectum, melanotic stools, urinary frequency, urinary retention, dysuria, hematuria MSK: Denies any joint pain, muscle pains, swelling Skin: Denies any rashes, lesions, discoloration Neuro: Denies any headache, lightheadedness, dizziness, fainting, weakness Psych: Denies SI/HI Patient History <April Heller MD - Last Filed: 06/19/25 19:22> Medical History (Updated 06/20/25 @ 01:21 by Esvin Andrade DO) Psoriasis (~2020) Depression Tinnitus (~1990) Hemorrhoid (~1989) Dyslipidemia HTN (hypertension) Surgical History (Updated 09/10/21 @ 22:30 by Chandrika Thompson) Anesthesia History of colonoscopy (~2009) H/O colonoscopy with polypectomy (~2018) Family History (Updated 09/10/21 @ 22:32 by Chandrika Thompson) Mother Diabetes mellitus Stroke Cancer Hypertension Hyperlipidemia Sister Cancer Father Cancer Social History marital status: household members: spouse occupational status: employed Smoking Status: Never smoker alcohol intake: current substance use type: does not use alcohol intake frequency: 3 or more drinks per day Exam <April Heller MD - Last Filed: 06/19/25 19:22> Initial Vital Signs Initial Vital Signs: Vital Signs Pulse Rate 65 06/19/25 18:56 Blood Pressure 134/100 H 06/19/25 18:56 Pulse Oximetry 96 06/19/25 18:56 <Esvin Andrade DO - Last Filed: 06/20/25 03:51> Narrative Exam Narrative: General: Cooperative, well-developed, not in acute distress HEENT: Normocephalic, atraumatic, PERRLA, normal sclera, eyelids normal Neck: Active full range of motion, atraumatic Chest: Normal to inspection, negative crepitus, no overlying erythema ecchymosis Respiratory: Normal respiratory effort, not in acute respiratory distress, clear to auscultation bilaterally negative cough, wheeze, tachypnea, rhonchi, rales Cardiology: Tachycardic, irregularly irregular GI/: No tenderness to palpation, soft, non rigid, normal to inspection, exam deferred MSK: Full active range of motion in all 4 extremities, atraumatic, no tenderness to palpation of any bony prominences Skin: No rashes or lesions noted Neuro: Alert awake oriented x3, moves all 4 extremities spontaneously, cranial nerves intact, able to answer all questions appropriately follows commands appropriately Psych: Cooperative, negative suicidal or homicidal ideations Initial Vital Signs Initial Vital Signs: Vital Signs Pulse Rate 65 06/19/25 18:56 Blood Pressure 134/100 H 06/19/25 18:56 Pulse Oximetry 96 06/19/25 18:56 Course <April Heller MD - Last Filed: 06/19/25 19:22> Orders Ordered: ED Orders 06/19/25 19:03 Blood Culture Stat Comprehensive Metabolic Panel Stat D Dimer Stat Lactate (Lactic Acid) Stat Magnesium Stat NT-proBNP (BNP-Adult 18+) Stat Procalcitonin Stat Troponin I Stat Urinalysis and Microscopic Stat EKG-12 Lead Stat 06/19/25 20:16 Complete Blood Count AUTO DIFF Stat 06/19/25 21:56 CT angio chest PE protocol Stat Acetaminophen (Acetaminophen 325 Mg Tablet) 650 mg PO Q6H PRN PRN Reason: Fever/Mild Pain (1-3) Albuterol (Albuterol 2.5 Mg/3 Ml Neb (Adult)) 2.5 mg INH [id number] PRN PRN Reason: Dyspnea Albuterol/Ipratropium (Albuterol/Ipratropium 3 Ml Ampul) 3 ml INH [id number] [facility] Apixaban (Apixaban 5 Mg Tablet) 5 mg PO BID [facility] Benzonatate (Benzonatate 100 Mg Capsule) 100 mg PO TID PRN PRN Reason: Cough Last Admin: 06/20/25 02:46 Dose: 100 mg Documented By: AZAEL Bisacodyl (Bisacodyl 10 Mg Supp) 10 mg SC DAILY PRN PRN Reason: Constipation Budesonide (Budesonide 0.5 Mg/2 Ml Neb) 0.5 mg INH RTBID [facility] Calcium Carbonate (Calcium Carbonate 500 Mg Tab) 1,000 mg PO Q4HR PRN PRN Reason: Dyspepsia Diltiazem HCl (Diltiazem 30 Mg Tablet) 30 mg PO BID [facility] Ezetimibe (Ezetimibe 10 Mg Tablet) 10 mg PO DAILY [facility] Hydralazine HCl (Hydralazine 20 Mg/Ml Vial) 10 mg IV Q6HR PRN PRN Reason: SBP>= 160 or DBP >=110 Diltiazem HCl 125 mg/ Sodium (Chloride) 125 mls @ 5 mls/hr IV TITRATE [facility]; Protocol Last Titration: 06/19/25 20:25 Dose: 15 mg/hr, 15 mls/hr Documented By: Admin: 06/19/25 19:47 Dose: 5 mg/hr, 5 mls/hr Documented By: NAZIA Azithromycin 500 mg/ Dextrose 250 mls @ 250 mls/hr IV Q24H [facility] Ceftriaxone Sodium 2,000 mg/ (Sodium Chloride) 100 mls @ 200 mls/hr IV Q24H [facility] Melatonin (Melatonin 3 Mg Tablet) 9 mg PO BEDTIME PRN PRN Reason: insomnia Metoprolol Succinate (Metoprolol Er 50 Mg Tablet) 100 mg PO BID [facility] Naloxone HCl (Naloxone 0.4 Mg/Ml Vial) 0.2 mg IV Q2MIN PRN PRN Reason: Opiate Reversal Ondansetron HCl (Ondansetron 4 Mg/2 Ml Inj) 4 mg IV Q8HR PRN PRN Reason: Nausea And Vomiting Pravastatin Sodium (Pravastatin 20 Mg Tablet) 20 mg PO BEDTIME [facility] Discontinued Medications Albuterol (Albuterol Hfa Mdi 60 Puff/8 Gm Inhaler (Covid Only)) 2 puff INH Q6H PRN PRN Reason: Shortness Of Breath Or Wheezing Diltiazem HCl (Diltiazem 25 Mg/5 Ml Sdv) 10 mg IV NOW ONE Stop: 06/19/25 19:02 Last Admin: 06/19/25 19:44 Dose: 10 mg Documented By: NAZIA Ceftriaxone Sodium 1,000 mg/ (Sodium Chloride) 100 mls @ 200 mls/hr IV NOW ONE Stop: 06/20/25 01:15 Last Infusion: 06/20/25 02:36 Dose: Infused Documented By: Admin: 06/20/25 01:55 Dose: 200 mls/hr Documented By: AZAEL Azithromycin 500 mg/ Dextrose 250 mls @ 250 mls/hr IV NOW ONE Stop: 06/20/25 01:15 Last Infusion: 06/20/25 03:36 Dose: Infused Documented By: Admin: 06/20/25 01:55 Dose: 250 mls/hr Documented By: AZAEL Non-Formulary Medication (Efsdhzpuqom-Jqqlrnhzf-Qgyrbuen [Trelegy Ellipta]) 1 inhalation INHALATION DAILY [facility] Vital Signs Vital signs: Vital Signs - 8 hr 06/19/25 19:50 06/19/25 19:50 06/19/25 19:55 Pulse Rate 178 H 169 H Respiratory Rate 27 H 32 H Blood Pressure 147/64 H Pulse Oximetry 94 94 Oxygen Delivery Method Oxygen Flow Rate 06/19/25 19:55 06/19/25 20:00 06/19/25 20:00 Pulse Rate 144 H Respiratory Rate 25 H Blood Pressure 124/68 138/80 Pulse Oximetry 91 Oxygen Delivery Method Oxygen Flow Rate 06/19/25 20:05 06/19/25 20:05 06/19/25 20:10 Pulse Rate 161 H Respiratory Rate 32 H Blood Pressure 157/75 H 168/101 H Pulse Oximetry 94 Oxygen Delivery Method Oxygen Flow Rate 06/19/25 20:10 06/19/25 20:15 06/19/25 20:15 Pulse Rate 163 H 163 H Respiratory Rate 31 H 31 H Blood Pressure 153/110 H Pulse Oximetry 95 94 Oxygen Delivery Method Oxygen Flow Rate 06/19/25 20:30 06/19/25 20:56 06/19/25 20:56 Pulse Rate 146 H 149 H Respiratory Rate 25 H 27 H Blood Pressure 139/87 Pulse Oximetry 88 L 96 Oxygen Delivery Method Nasal Cannula Oxygen Flow Rate 1 06/19/25 21:00 06/19/25 21:00 06/19/25 21:10 Pulse Rate 141 H 155 H Respiratory Rate 23 28 H Blood Pressure 124/84 Pulse Oximetry 95 Oxygen Delivery Method Oxygen Flow Rate 06/19/25 21:10 06/19/25 21:21 06/19/25 21:21 Pulse Rate 146 H Respiratory Rate 24 Blood Pressure 113/82 137/84 Pulse Oximetry 89 L Oxygen Delivery Method Oxygen Flow Rate 06/19/25 21:30 06/19/25 21:30 06/19/25 21:50 Pulse Rate 134 H 147 H Respiratory Rate 23 36 H Blood Pressure 136/87 Pulse Oximetry 94 94 Oxygen Delivery Method Oxygen Flow Rate 2 06/19/25 21:50 06/19/25 22:00 06/19/25 22:08 Pulse Rate 141 H Respiratory Rate 34 H Blood Pressure 134/87 148/93 H Pulse Oximetry 94 Oxygen Delivery Method Nasal Cannula Oxygen Flow Rate 2 06/19/25 22:08 06/19/25 22:10 06/19/25 22:10 Pulse Rate 145 H 142 H Respiratory Rate 29 H 30 H Blood Pressure 127/83 Pulse Oximetry 95 Oxygen Delivery Method Oxygen Flow Rate 06/19/25 22:12 06/19/25 22:12 06/19/25 22:20 Pulse Rate 144 H Respiratory Rate 27 H Blood Pressure 144/81 H 144/84 H Pulse Oximetry Oxygen Delivery Method Oxygen Flow Rate 06/19/25 22:20 06/19/25 22:27 06/19/25 22:27 Pulse Rate 135 H 138 H Respiratory Rate 31 H 26 H Blood Pressure 170/111 H Pulse Oximetry 93 92 Oxygen Delivery Method Oxygen Flow Rate 06/19/25 22:30 06/19/25 22:30 06/19/25 22:41 Pulse Rate 129 H 152 H Respiratory Rate 24 26 H Blood Pressure 177/78 H Pulse Oximetry 94 95 Oxygen Delivery Method Oxygen Flow Rate 06/19/25 22:41 06/19/25 22:50 06/19/25 22:50 Pulse Rate 136 H Respiratory Rate 23 Blood Pressure 125/68 141/72 H Pulse Oximetry 96 Oxygen Delivery Method Oxygen Flow Rate 06/19/25 23:00 06/19/25 23:00 06/19/25 23:10 Pulse Rate 135 H 134 H Respiratory Rate 25 H 22 Blood Pressure 139/79 Pulse Oximetry 93 95 Oxygen Delivery Method Oxygen Flow Rate 06/19/25 23:10 06/19/25 23:20 06/19/25 23:20 Pulse Rate 121 H Respiratory Rate 23 Blood Pressure 152/81 H 135/72 Pulse Oximetry 93 Oxygen Delivery Method Oxygen Flow Rate 06/19/25 23:30 06/19/25 23:30 06/19/25 23:40 Pulse Rate 121 H 122 H Respiratory Rate 23 Blood Pressure 140/80 Pulse Oximetry 95 95 Oxygen Delivery Method Oxygen Flow Rate 06/19/25 23:40 06/19/25 23:50 06/19/25 23:50 Pulse Rate 115 H Respiratory Rate Blood Pressure 131/94 H 139/73 Pulse Oximetry 94 Oxygen Delivery Method Oxygen Flow Rate 06/20/25 00:00 06/20/25 00:00 06/20/25 00:10 Pulse Rate 120 H 111 H Respiratory Rate Blood Pressure 158/82 H Pulse Oximetry 95 96 Oxygen Delivery Method Nasal Cannula Oxygen Flow Rate 2 06/20/25 00:10 06/20/25 00:20 06/20/25 00:20 Pulse Rate 116 H Respiratory Rate Blood Pressure 139/79 134/73 Pulse Oximetry 95 Oxygen Delivery Method Oxygen Flow Rate 06/20/25 00:30 06/20/25 00:30 06/20/25 00:40 Pulse Rate 106 H 114 H Respiratory Rate 21 Blood Pressure 136/78 Pulse Oximetry 93 93 Oxygen Delivery Method Nasal Cannula Nasal Cannula Oxygen Flow Rate 2 2 06/20/25 00:40 06/20/25 00:50 06/20/25 00:50 Pulse Rate 107 H Respiratory Rate 20 Blood Pressure 141/79 H 144/75 H Pulse Oximetry 93 Oxygen Delivery Method Oxygen Flow Rate 06/20/25 01:00 06/20/25 01:00 06/20/25 01:10 Pulse Rate 113 H Respiratory Rate 23 Blood Pressure 151/76 H 127/86 Pulse Oximetry 93 Oxygen Delivery Method Oxygen Flow Rate 06/20/25 01:10 Pulse Rate 106 H Respiratory Rate 20 Blood Pressure Pulse Oximetry 96 Oxygen Delivery Method Oxygen Flow Rate <Esvin Andrade, DO - Last Filed: 06/20/25 03:51> Orders Ordered: ED Orders 06/19/25 19:03 Blood Culture Stat Comprehensive Metabolic Panel Stat D Dimer Stat Lactate (Lactic Acid) Stat Magnesium Stat NT-proBNP (BNP-Adult 18+) Stat Procalcitonin Stat Troponin I Stat Urinalysis and Microscopic Stat EKG-12 Lead Stat 06/19/25 20:16 Complete Blood Count AUTO DIFF Stat 06/19/25 21:56 CT angio chest PE protocol Stat Acetaminophen (Acetaminophen 325 Mg Tablet) 650 mg PO Q6H PRN PRN Reason: Fever/Mild Pain (1-3) Albuterol (Albuterol 2.5 Mg/3 Ml Neb (Adult)) 2.5 mg INH [id number] PRN PRN Reason: Dyspnea Albuterol/Ipratropium (Albuterol/Ipratropium 3 Ml Ampul) 3 ml INH [id number] [facility] Apixaban (Apixaban 5 Mg Tablet) 5 mg PO BID [facility] Benzonatate (Benzonatate 100 Mg Capsule) 100 mg PO TID PRN PRN Reason: Cough Last Admin: 06/20/25 02:46 Dose: 100 mg Documented By: AZAEL Bisacodyl (Bisacodyl 10 Mg Supp) 10 mg SC DAILY PRN PRN Reason: Constipation Budesonide (Budesonide 0.5 Mg/2 Ml Neb) 0.5 mg INH RTBID [facility] Calcium Carbonate (Calcium Carbonate 500 Mg Tab) 1,000 mg PO Q4HR PRN PRN Reason: Dyspepsia Diltiazem HCl (Diltiazem 30 Mg Tablet) 30 mg PO BID [facility] Ezetimibe (Ezetimibe 10 Mg Tablet) 10 mg PO DAILY [facility] Hydralazine HCl (Hydralazine 20 Mg/Ml Vial) 10 mg IV Q6HR PRN PRN Reason: SBP>= 160 or DBP >=110 Diltiazem HCl 125 mg/ Sodium (Chloride) 125 mls @ 5 mls/hr IV TITRATE [facility]; Protocol Last Titration: 06/19/25 20:25 Dose: 15 mg/hr, 15 mls/hr Documented By: Admin: 06/19/25 19:47 Dose: 5 mg/hr, 5 mls/hr Documented By: NAZIA Azithromycin 500 mg/ Dextrose 250 mls @ 250 mls/hr IV Q24H [facility] Ceftriaxone Sodium 2,000 mg/ (Sodium Chloride) 100 mls @ 200 mls/hr IV Q24H [facility] Melatonin (Melatonin 3 Mg Tablet) 9 mg PO BEDTIME PRN PRN Reason: insomnia Metoprolol Succinate (Metoprolol Er 50 Mg Tablet) 100 mg PO BID [facility] Naloxone HCl (Naloxone 0.4 Mg/Ml Vial) 0.2 mg IV Q2MIN PRN PRN Reason: Opiate Reversal Ondansetron HCl (Ondansetron 4 Mg/2 Ml Inj) 4 mg IV Q8HR PRN PRN Reason: Nausea And Vomiting Pravastatin Sodium (Pravastatin 20 Mg Tablet) 20 mg PO BEDTIME [facility] Discontinued Medications Albuterol (Albuterol Hfa Mdi 60 Puff/8 Gm Inhaler (Covid Only)) 2 puff INH Q6H PRN PRN Reason: Shortness Of Breath Or Wheezing Diltiazem HCl (Diltiazem 25 Mg/5 Ml Sdv) 10 mg IV NOW ONE Stop: 06/19/25 19:02 Last Admin: 06/19/25 19:44 Dose: 10 mg Documented By: NAZIA Ceftriaxone Sodium 1,000 mg/ (Sodium Chloride) 100 mls @ 200 mls/hr IV NOW ONE Stop: 06/20/25 01:15 Last Infusion: 06/20/25 02:36 Dose: Infused Documented By: Admin: 06/20/25 01:55 Dose: 200 mls/hr Documented By: AZAEL Azithromycin 500 mg/ Dextrose 250 mls @ 250 mls/hr IV NOW ONE Stop: 06/20/25 01:15 Last Infusion: 06/20/25 03:36 Dose: Infused Documented By: Admin: 06/20/25 01:55 Dose: 250 mls/hr Documented By: AZAEL Non-Formulary Medication (Qnallzrpqek-Ikqnorvxb-Fjzumvvd [Trelegy Ellipta]) 1 inhalation INHALATION DAILY [facility] Vital Signs Vital signs: Vital Signs - 8 hr 06/19/25 19:50 06/19/25 19:50 06/19/25 19:55 Pulse Rate 178 H 169 H Respiratory Rate 27 H 32 H Blood Pressure 147/64 H Pulse Oximetry 94 94 Oxygen Delivery Method Oxygen Flow Rate 06/19/25 19:55 06/19/25 20:00 06/19/25 20:00 Pulse Rate 144 H Respiratory Rate 25 H Blood Pressure 124/68 138/80 Pulse Oximetry 91 Oxygen Delivery Method Oxygen Flow Rate 06/19/25 20:05 06/19/25 20:05 06/19/25 20:10 Pulse Rate 161 H Respiratory Rate 32 H Blood Pressure 157/75 H 168/101 H Pulse Oximetry 94 Oxygen Delivery Method Oxygen Flow Rate 06/19/25 20:10 06/19/25 20:15 06/19/25 20:15 Pulse Rate 163 H 163 H Respiratory Rate 31 H 31 H Blood Pressure 153/110 H Pulse Oximetry 95 94 Oxygen Delivery Method Oxygen Flow Rate 06/19/25 20:30 06/19/25 20:56 06/19/25 20:56 Pulse Rate 146 H 149 H Respiratory Rate 25 H 27 H Blood Pressure 139/87 Pulse Oximetry 88 L 96 Oxygen Delivery Method Nasal Cannula Oxygen Flow Rate 1 06/19/25 21:00 06/19/25 21:00 06/19/25 21:10 Pulse Rate 141 H 155 H Respiratory Rate 23 28 H Blood Pressure 124/84 Pulse Oximetry 95 Oxygen Delivery Method Oxygen Flow Rate 06/19/25 21:10 06/19/25 21:21 06/19/25 21:21 Pulse Rate 146 H Respiratory Rate 24 Blood Pressure 113/82 137/84 Pulse Oximetry 89 L Oxygen Delivery Method Oxygen Flow Rate 06/19/25 21:30 06/19/25 21:30 06/19/25 21:50 Pulse Rate 134 H 147 H Respiratory Rate 23 36 H Blood Pressure 136/87 Pulse Oximetry 94 94 Oxygen Delivery Method Oxygen Flow Rate 2 06/19/25 21:50 06/19/25 22:00 06/19/25 22:08 Pulse Rate 141 H Respiratory Rate 34 H Blood Pressure 134/87 148/93 H Pulse Oximetry 94 Oxygen Delivery Method Nasal Cannula Oxygen Flow Rate 2 06/19/25 22:08 06/19/25 22:10 06/19/25 22:10 Pulse Rate 145 H 142 H Respiratory Rate 29 H 30 H Blood Pressure 127/83 Pulse Oximetry 95 Oxygen Delivery Method Oxygen Flow Rate 06/19/25 22:12 06/19/25 22:12 06/19/25 22:20 Pulse Rate 144 H Respiratory Rate 27 H Blood Pressure 144/81 H 144/84 H Pulse Oximetry Oxygen Delivery Method Oxygen Flow Rate 06/19/25 22:20 06/19/25 22:27 06/19/25 22:27 Pulse Rate 135 H 138 H Respiratory Rate 31 H 26 H Blood Pressure 170/111 H Pulse Oximetry 93 92 Oxygen Delivery Method Oxygen Flow Rate 06/19/25 22:30 06/19/25 22:30 06/19/25 22:41 Pulse Rate 129 H 152 H Respiratory Rate 24 26 H Blood Pressure 177/78 H Pulse Oximetry 94 95 Oxygen Delivery Method Oxygen Flow Rate 06/19/25 22:41 06/19/25 22:50 06/19/25 22:50 Pulse Rate 136 H Respiratory Rate 23 Blood Pressure 125/68 141/72 H Pulse Oximetry 96 Oxygen Delivery Method Oxygen Flow Rate 06/19/25 23:00 06/19/25 23:00 06/19/25 23:10 Pulse Rate 135 H 134 H Respiratory Rate 25 H 22 Blood Pressure 139/79 Pulse Oximetry 93 95 Oxygen Delivery Method Oxygen Flow Rate 06/19/25 23:10 06/19/25 23:20 06/19/25 23:20 Pulse Rate 121 H Respiratory Rate 23 Blood Pressure 152/81 H 135/72 Pulse Oximetry 93 Oxygen Delivery Method Oxygen Flow Rate 06/19/25 23:30 06/19/25 23:30 06/19/25 23:40 Pulse Rate 121 H 122 H Respiratory Rate 23 Blood Pressure 140/80 Pulse Oximetry 95 95 Oxygen Delivery Method Oxygen Flow Rate 06/19/25 23:40 06/19/25 23:50 06/19/25 23:50 Pulse Rate 115 H Respiratory Rate Blood Pressure 131/94 H 139/73 Pulse Oximetry 94 Oxygen Delivery Method Oxygen Flow Rate 06/20/25 00:00 06/20/25 00:00 06/20/25 00:10 Pulse Rate 120 H 111 H Respiratory Rate Blood Pressure 158/82 H Pulse Oximetry 95 96 Oxygen Delivery Method Nasal Cannula Oxygen Flow Rate 2 06/20/25 00:10 06/20/25 00:20 06/20/25 00:20 Pulse Rate 116 H Respiratory Rate Blood Pressure 139/79 134/73 Pulse Oximetry 95 Oxygen Delivery Method Oxygen Flow Rate 06/20/25 00:30 06/20/25 00:30 06/20/25 00:40 Pulse Rate 106 H 114 H Respiratory Rate 21 Blood Pressure 136/78 Pulse Oximetry 93 93 Oxygen Delivery Method Nasal Cannula Nasal Cannula Oxygen Flow Rate 2 2 06/20/25 00:40 06/20/25 00:50 06/20/25 00:50 Pulse Rate 107 H Respiratory Rate 20 Blood Pressure 141/79 H 144/75 H Pulse Oximetry 93 Oxygen Delivery Method Oxygen Flow Rate 06/20/25 01:00 06/20/25 01:00 06/20/25 01:10 Pulse Rate 113 H Respiratory Rate 23 Blood Pressure 151/76 H 127/86 Pulse Oximetry 93 Oxygen Delivery Method Oxygen Flow Rate 06/20/25 01:10 Pulse Rate 106 H Respiratory Rate 20 Blood Pressure Pulse Oximetry 96 Oxygen Delivery Method Oxygen Flow Rate Medical Decision Making <April Heller MD - Last Filed: 06/19/25 19:22> Lab Data 06/19/25 20:16 06/19/25 19:03 Labs: Lab Results 06/19/25 06/19/25 Range/Units 19:03 20:16 WBC 6.0 (4.5-11.0) X10^3/uL RBC 4.06 L (4.5-5.9) X10^6/uL Hgb 10.7 L (13.5-17.5) g/dL Hct 33.9 L (41-53) % MCV 83.5 (80-100) fL MCH 26.4 (26-34) PG MCHC 31.6 (30-36) % RDW 25.8 H (11.6-14.8) % Plt Count 175 (150-400) X10^3/uL Neut % (Auto) Not Reportable Lymph % (Auto) Not Reportable [place] % (Auto) Not Reportable Eos % (Auto) Not Reportable Baso % (Auto) Not Reportable Lymph # (Auto) Not Reportable [place] # (Auto) Not Reportable Baso # (Auto) Not Reportable Total Counted 100 Seg Neutrophils % 68.0 (38-70) % Lymphocytes % (Manual) 21.0 L (25-45) % Monocytes % (Manual) 11.0 (2-11) % Neutrophils # (Manual) 4080 (4754-0901) /uL RBC Morphology See below Anisocytosis 4+ H D-Dimer 1584 H (<500) ng/ml Sodium 133 L (137-145) mmol/L Potassium 4.5 (3.4-5.1) mmol/L Chloride 97 L (98-107) mmol/L Carbon Dioxide 22 (22-32) mmol/L BUN 24 H (9-20) mg/dL Creatinine 0.74 (0.66-1.25) mg/dL Estimated GFR > 60 (>60) mL/min BUN/Creatinine Ratio 32.4 H (6-22) Glucose 143 H (70-99) mg/dL Lactate 1.9 (0.7-2.1) mmol/L Calcium 8.7 (8.4-10.2) mg/dL Magnesium 2.1 (1.6-2.3) mg/dL Total Bilirubin 1.5 H (0.2-1.3) mg/dL AST 71 H (17-59) IU/L ALT 44 (<50) IU/L Alkaline Phosphatase 47 (38-126) U/L Troponin I < 0.012 (0.01-0.034) ng/mL NT-Pro-B Natriuret Pep 2590 H (<125) pg/mL Total Protein 7.9 (6.3-8.2) g/dL Albumin 4.3 (3.5-5.0) g/dL Globulin 3.6 (1.7-4.1) g/dL Albumin/Globulin Ratio 1.2 (1.0-2.8) Procalcitonin 0.246 (<0.5) ng/mL <Esvin Andrade, DO - Last Filed: 06/20/25 03:51> Lab Data Labs: Lab Results 06/19/25 06/19/25 Range/Units 19:03 20:16 WBC 6.0 (4.5-11.0) X10^3/uL RBC 4.06 L (4.5-5.9) X10^6/uL Hgb 10.7 L (13.5-17.5) g/dL Hct 33.9 L (41-53) % MCV 83.5 (80-100) fL MCH 26.4 (26-34) PG MCHC 31.6 (30-36) % RDW 25.8 H (11.6-14.8) % Plt Count 175 (150-400) X10^3/uL Neut % (Auto) Not Reportable Lymph % (Auto) Not Reportable [place] % (Auto) Not Reportable Eos % (Auto) Not Reportable Baso % (Auto) Not Reportable Lymph # (Auto) Not Reportable [place] # (Auto) Not Reportable Baso # (Auto) Not Reportable Total Counted 100 Seg Neutrophils % 68.0 (38-70) % Lymphocytes % (Manual) 21.0 L (25-45) % Monocytes % (Manual) 11.0 (2-11) % Neutrophils # (Manual) 4080 (0001-5681) /uL RBC Morphology See below Anisocytosis 4+ H D-Dimer 1584 H (<500) ng/ml Sodium 133 L (137-145) mmol/L Potassium 4.5 (3.4-5.1) mmol/L Chloride 97 L (98-107) mmol/L Carbon Dioxide 22 (22-32) mmol/L BUN 24 H (9-20) mg/dL Creatinine 0.74 (0.66-1.25) mg/dL Estimated GFR > 60 (>60) mL/min BUN/Creatinine Ratio 32.4 H (6-22) Glucose 143 H (70-99) mg/dL Lactate 1.9 (0.7-2.1) mmol/L Calcium 8.7 (8.4-10.2) mg/dL Magnesium 2.1 (1.6-2.3) mg/dL Total Bilirubin 1.5 H (0.2-1.3) mg/dL AST 71 H (17-59) IU/L ALT 44 (<50) IU/L Alkaline Phosphatase 47 (38-126) U/L Troponin I < 0.012 (0.01-0.034) ng/mL NT-Pro-B Natriuret Pep 2590 H (<125) pg/mL Total Protein 7.9 (6.3-8.2) g/dL Albumin 4.3 (3.5-5.0) g/dL Globulin 3.6 (1.7-4.1) g/dL Albumin/Globulin Ratio 1.2 (1.0-2.8) Procalcitonin 0.246 (<0.5) ng/mL MDM Narrative Medical decision making narrative: 2300: Patient was signed out to me by Dr. Heller, patient has a history of AFib on Eliquis, chronic cough, patient presented initially for persistent/worsening cough secondary to patient is patient is not requiring any supplemental oxygen, when he arrived he however was found in rapid AFib patient required administration of diltiazem drip given the fact that patient had already received 15 mg IV metoprolol prior to arrival by medics, D-dimer was elevated at 1584, CTA was negative for PE however there was multiple areas of consolidation right worse than left suggestive of atypical infection and/or aspiration, therefore Rocephin azithromycin was ordered, troponin was negative, BNP was elevated at 2590 however he is not requiring any supplemental oxygen, given patient requiring Cardizem drip as well as AFib in the setting of multifocal pneumonia he will require admission to the hospital for rate control and antibiotics. The patient's management plan was discussed Dr. Fitzpatrick, who agrees to admit the patient to their service and assumes care of this patient at this time. Full admission orders will be placed by the primary team. Discharge Plan Departure Patient Disposition: Home Clinical Impression: A-fib, Multifocal pneumonia
--- NOTE | 2025-06-19 19:03 | EKG_ITS ---
[facility] [address] [place] [address] Test Date: 2025-06-19 Pat Name: Maximus Govea Department: [facility] Room: Gender: Male Case Management Coordinator: JUICE : 1955 Requested By: Order Number: [id number] Reading MD: Vincent Castañeda MD Measurements Intervals [place] Rate: 169 P: NV: QRS: 48 QRSD: 82 T: 82 QT: 262 QTc: 439 Interpretive Statements Critical Test Result: High HR Atrial fibrillation with rapid ventricular response Nonspecific ST abnormality Electronically Signed On 06-20-2025 6:45:26 PST by Vincent Castañeda MD
[2025-06-19 20:47] LABS: Add Manual Diff / Slide Review YES; Hematocrit 33.9 % (41-53); Hemoglobin 10.7 g/dL (13.5-17.5); Mean Corpuscular HGB Conc 31.6 % (30-36); Mean Corpuscular Hemoglobin 26.4 PG (26-34); Mean Corpuscular Volume 83.5 fL (80-100); Platelet Count 175 X10^3/uL (150-400)
[2025-06-19 20:50] LABS: Alanine Aminotransferase 44 IU/L (<50); Albumin 4.3 g/dL (3.5-5.0); Albumin Globulin Ratio 1.2 (1.0-2.8); Alkaline Phosphatase 47 U/L (38-126); Blood Urea Nitrogen 24 mg/dL (9-20); Calcium 8.7 mg/dL (8.4-10.2); Carbon Dioxide 22 mmol/L (22-32); Chloride 97 mmol/L (98-107); Estimated Glomerular Filt Rate > 60 mL/min (>60); Globulin 3.6 g/dL (1.7-4.1); Glucose 143 mg/dL (70-99); Lactate (Lactic Acid) 1.9 mmol/L (0.7-2.1); Magnesium 2.1 mg/dL (1.6-2.3); Potassium 4.5 mmol/L (3.4-5.1); Sodium 133 mmol/L (137-145); Total Protein 7.9 g/dL (6.3-8.2)
[2025-06-19 21:08] LABS: Procalcitonin 0.246 ng/mL (<0.5)
[2025-06-19 21:09] LABS: Anisocytosis 4+; Lymphocytes Percent Manual 21.0 % (25-45); Monocytes Percent Manual 11.0 % (2-11); Neutrophils Absolute Manual 4080 /uL (3000-5900); Segmented Neutrophils Percent 68.0 % (38-70); Total Cells Counted 100
[2025-06-19 21:50] LABS: HEMOLYSIS 30 (0-50); NT-proBNP (BNP-Adult 18+) 2590 pg/mL (<125); Troponin I < 0.012 ng/mL (0.01-0.034)
--- NOTE | 2025-06-19 21:56 | DI.CT.S_ITS ---
PROCEDURE: CT ANGIO CHEST PE PROTOCOL INDICATIONS: elevated d dimer TECHNIQUE: After the administration of intravenous contrast, 2 mm thick sections acquired from the pulmonary apices to the posterior costophrenic angles. 3-dimensional maximum intensity projection (MIP) coronal and sagittal reformats were then acquired through the thorax. For radiation dose reduction, the following was used: automated exposure control, adjustment of mA and/or kV according to patient size. COMPARISON: Outside Facility, CT, CT ANGIO CHEST PE PROTOCOL, 12/25/2021, 14:49. FINDINGS: Image quality: Diagnostic. Pulmonary arteries: Pulmonary arteries are normal in size, and demonstrate no intraluminal filling defects to suggest central pulmonary embolism. Lower Neck: No enlarged lymph nodes. Thyroid: No thyroid nodules which require sonographic follow up, per consensus guidelines. Axillae: No enlarged lymph nodes. Chest Wall: Unremarkable. Bones: Unremarkable. Lungs and Pleura: Multifocal areas of prominent centrilobular tree-in-bud nodularity and patchy consolidation, most prominent in the right lower lobe, left lower lobe, and lingula. Bronchial wall thickening is seen in these areas. No pleural effusion or pneumothorax. Heart: Heart size is normal. No pericardial effusion. Thoracic Vessels: No aortic aneurysm. Mediastinum and Minda: Prominent nonenlarged mediastinal and hilar lymph nodes, likely reactive. Esophagus: No wall thickening. No hiatal hernia. Upper Abdomen: Visualized upper abdomen solid organs and bowel loops appear normal. IMPRESSION: Multifocal areas of prominent centrilobular tree-in-bud nodularity and patchy consolidation, most prominent in the right lower lobe, left lower lobe, and lingula suggestive of atypical infection, or aspiration/airways spread of infection. No pulmonary embolus. Dictated by: Husam Staley M.D. on 06/19/2025 at 23:13 Approved by: Husam Staley M.D. on 06/19/2025 at 23:19
--- NOTE | 2025-06-19 22:34 | PC.NURSE ---
This RN escort pt with portable clinical trial coordinator to CT on dilt drip
[2025-06-20] VITALS (49 sets, daily range): BP systolic 99–166; BP diastolic 62–99; PULSE 83–128; RESP 16–35; TEMP 36.7–37.2; O2SAT 91–98; BMI 26.2
[2025-06-20] MEDS: AZITHROMYCIN 500 MG in DEXTROSE 5% IN WATER 250 ML 250 MG IV (01:55)
[2025-06-20] MEDS: BENZONATATE 100 MG CAPSULE PO ×3 (02:46→20:56)
[2025-06-20 06:12] LABS: Appearance Urine UA CLEAR; Bilirubin Urine UA 1+ (NEGATIVE); Color Urine UA YELLOW; Glucose Urine UA NEGATIVE (Negative); Ketones Urine UA 1+ (NEGATIVE); Leukocyte Esterase Urine UA NEGATIVE (NEGATIVE); Nitrite Urine UA NEGATIVE (Negative); Occult Blood Urine UA NEGATIVE (Negative); Protein Urine UA TRACE (Negative); Specific Gravity Urine UA 1.020 (1.000-1.035); Urobilinogen Urine UA 2.0 E.U./dL (0.2); pH Urine UA 5.5 (4.5-8.0)
[2025-06-20 06:16] LABS: Ictotest Urine Negative (Negative)
[2025-06-20 06:17] LABS: Culture Indicated Urine Cult Not Indicated
--- NOTE | 2025-06-20 06:20 | PM.HP.1 ---
History of Present Illness History of Present Illness Chief complaint: Rapid a.fib. Narrative: 70 years old male with history of atrial fibrillation on Eliquis, COPD, CAD, chronic cough, alcohol abuse, hyperlipidemia, hypertension, diabetes mellitus type 2, presented to the ER with shortness of breath, generalized weakness, orthopnea, productive cough, congestion, nausea and vomiting in the last several days. Denies any chest pain, fever, abdominal pain, diarrhea or dysuria. EMS found the patient in A-fib with RVR and was given 15 mg IV metoprolol. In the ER he was started on Cardizem drip. Laboratory showed WBC 6, hemoglobin 10.7, D-dimer 1584, sodium 133, potassium 4.5, creatinine 0.74, glucose 143, lactate 1.9, 2.1, AST 71, ALT 44, troponin negative, BNP 2590 procalcitonin 0.24, UA negative. EKG shows atrial fibrillation with RVR with rate of 169. CT of the chest shows multifocal pneumonia and no PE. The patient was given ceftriaxone, azithromycin, diltiazem 10 mg IV and was started on Cardizem drip. [facility] Medical History (Updated 06/20/25 @ 01:21 by Esvin Andrade DO) Psoriasis (~2020) Depression Tinnitus (~1990) Hemorrhoid (~1989) Dyslipidemia HTN (hypertension) Surgical History (Updated 09/10/21 @ 22:30 by Chandrika Thompson) Anesthesia History of colonoscopy (~2009) H/O colonoscopy with polypectomy (~2018) Family History (Updated 09/10/21 @ 22:32 by Chandrika Thompson) Mother Diabetes mellitus Stroke Cancer Hypertension Hyperlipidemia Sister Cancer Father Cancer Social History marital status: household members: spouse occupational status: employed Smoking Status: Never smoker alcohol intake: current substance use type: does not use Meds Home Medications and Allergies Home Medications ?Medication ?Instructions ?Recorded ?Confirmed ?Type ezetimibe 10 mg tablet 10 mg PO DAILY #90 tabs 12/15/24 05/31/25 Rx pravastatin 20 mg tablet 20 mg PO BEDTIME #90 tabs 12/15/24 05/31/25 Rx diltiazem HCl 30 mg tablet 30 mg PO BID #180 tabs 03/14/25 05/31/25 Rx mometasone-formoterol HFA 200 2 puff inhalation BID #8.8 grams 04/12/25 05/31/25 Rx mcg-5 mcg/actuation aerosol inhaler (Dulera) metoprolol succinate 100 mg 100 mg PO BID #180 tabs 05/01/25 05/31/25 Rx tablet,extended release 24 hr apixaban 5 mg tablet (Eliquis) 5 mg PO BID #180 tabs 05/16/25 05/31/25 Rx albuterol sulfate 90 mcg/actuation 2 puff inhalation Q6H PRN 05/31/25 05/31/25 Rx aerosol inhaler shortness of breath or wheezing #8.5 grams fluticasone fur. 200 mcg-umeclid 1 inh inhalation DAILY #60 ea 05/31/25 05/31/25 Rx 62.5 mcg-vilant 25 mcg inhalat.powder (Trelegy Ellipta) tirzepatide 5 mg/0.5 mL 5 mg (0.5 mL) SUBCUT QWEEK #2 mL 06/08/25 Rx subcutaneous pen injector (Mounjaro) Allergies Allergy/AdvReac Type Severity Reaction Status Date / Time Penicillins (PENICILLINS) Allergy Mild Unknown, Verified 05/31/25 11:50 advised as a child Review of Systems Review of Systems ROS: Yes All systems reviewed with the patient and are negative except as otherwise documented Constitutional Constitutional: Reports as per HPI and Reports system reviewed and no additional complaints, except as documented Eyes Eyes: Reports as per HPI and Reports system reviewed and no additional complaints, except as documented ENT Ears, Nose, Mouth, and Throat: Yes as per HPI and Yes system reviewed and no additional complaints, except as documented Cardiovascular Cardiovascular: Reports system reviewed and no additional complaints, except as documented Respiratory Respiratory: Reports system reviewed and no additional complaints, except as documented Gastrointestinal Gastrointestinal: Reports system reviewed and no additional complaints, except as documented Genitourinary Genitourinary: Reports system reviewed and no additional complaints, except as documented Musculoskeletal Musculoskeletal: Reports system reviewed and no additional complaints, except as documented, Reports abnormal gait and Reports numbness Neurologic Neurologic: Reports system reviewed and no additional complaints, except as documented, Reports abnormal gait, Reports confusion and Reports numbness Psychiatric Psychiatric: Reports system reviewed and no additional complaints, except as documented and Reports confusion Exam Vital Signs (past 8 hours): - 06/19/25 22:27 06/19/25 22:27 06/19/25 22:30 Pulse Rate 138 H 129 H Respiratory Rate 26 H 24 Blood Pressure 170/111 H Pulse Oximetry 92 94 Oxygen Delivery Method Oxygen Flow Rate 06/19/25 22:30 06/19/25 22:41 06/19/25 22:41 Pulse Rate 152 H Respiratory Rate 26 H Blood Pressure 177/78 H 125/68 Pulse Oximetry 95 Oxygen Delivery Method Oxygen Flow Rate 06/19/25 22:50 06/19/25 22:50 06/19/25 23:00 Pulse Rate 136 H Respiratory Rate 23 Blood Pressure 141/72 H 139/79 Pulse Oximetry 96 Oxygen Delivery Method Oxygen Flow Rate 06/19/25 23:00 06/19/25 23:10 06/19/25 23:10 Pulse Rate 135 H 134 H Respiratory Rate 25 H 22 Blood Pressure 152/81 H Pulse Oximetry 93 95 Oxygen Delivery Method Oxygen Flow Rate 06/19/25 23:20 06/19/25 23:20 06/19/25 23:30 Pulse Rate 121 H 121 H Respiratory Rate 23 23 Blood Pressure 135/72 Pulse Oximetry 93 95 Oxygen Delivery Method Oxygen Flow Rate 06/19/25 23:30 06/19/25 23:40 06/19/25 23:40 Pulse Rate 122 H Respiratory Rate Blood Pressure 140/80 131/94 H Pulse Oximetry 95 Oxygen Delivery Method Oxygen Flow Rate 06/19/25 23:50 06/19/25 23:50 06/20/25 00:00 Pulse Rate 115 H 120 H Respiratory Rate Blood Pressure 139/73 Pulse Oximetry 94 95 Oxygen Delivery Method Nasal Cannula Oxygen Flow Rate 2 06/20/25 00:00 06/20/25 00:10 06/20/25 00:10 Pulse Rate 111 H Respiratory Rate Blood Pressure 158/82 H 139/79 Pulse Oximetry 96 Oxygen Delivery Method Oxygen Flow Rate 06/20/25 00:20 06/20/25 00:20 06/20/25 00:30 Pulse Rate 116 H Respiratory Rate Blood Pressure 134/73 136/78 Pulse Oximetry 95 Oxygen Delivery Method Oxygen Flow Rate 06/20/25 00:30 06/20/25 00:40 06/20/25 00:40 Pulse Rate 106 H 114 H Respiratory Rate 21 Blood Pressure 141/79 H Pulse Oximetry 93 93 Oxygen Delivery Method Nasal Cannula Nasal Cannula Oxygen Flow Rate 2 2 06/20/25 00:50 06/20/25 00:50 06/20/25 01:00 Pulse Rate 107 H 113 H Respiratory Rate 20 23 Blood Pressure 144/75 H Pulse Oximetry 93 93 Oxygen Delivery Method Oxygen Flow Rate 06/20/25 01:00 06/20/25 01:10 06/20/25 01:10 Pulse Rate 106 H Respiratory Rate 20 Blood Pressure 151/76 H 127/86 Pulse Oximetry 96 Oxygen Delivery Method Oxygen Flow Rate 06/20/25 01:20 06/20/25 01:20 06/20/25 01:30 Pulse Rate 106 H 111 H Respiratory Rate 20 29 H Blood Pressure 136/85 Pulse Oximetry 95 93 Oxygen Delivery Method Oxygen Flow Rate 06/20/25 01:30 06/20/25 01:41 06/20/25 01:41 Pulse Rate 110 H Respiratory Rate 24 Blood Pressure 143/77 H 142/99 H Pulse Oximetry 93 Oxygen Delivery Method Oxygen Flow Rate 06/20/25 01:50 06/20/25 01:50 06/20/25 02:00 Pulse Rate 112 H 126 H Respiratory Rate 23 26 H Blood Pressure 141/75 H Pulse Oximetry 92 92 Oxygen Delivery Method Oxygen Flow Rate 06/20/25 02:00 06/20/25 02:30 06/20/25 02:30 Pulse Rate 108 H Respiratory Rate 22 Blood Pressure 134/86 139/86 Pulse Oximetry 95 Oxygen Delivery Method Oxygen Flow Rate 06/20/25 03:00 06/20/25 03:00 06/20/25 03:30 Pulse Rate 128 H 123 H Respiratory Rate 29 H 25 H Blood Pressure 166/85 H Pulse Oximetry 93 93 Oxygen Delivery Method Oxygen Flow Rate 06/20/25 04:00 06/20/25 04:00 06/20/25 04:30 Pulse Rate 120 H 122 H Respiratory Rate 23 26 H Blood Pressure 143/87 H Pulse Oximetry 94 94 Oxygen Delivery Method Nasal Cannula Oxygen Flow Rate 2 Oxygen Delivery Method Nasal Cannula Oxygen Flow Rate 2 Const General: cooperative, comfortable and well developed Orientation: alert and oriented x3 HENMT Head: normal to inspection, normocephalic and atraumatic Face and sinus: normal facial exam Mouth: oral mucosae normal and moist mucous membranes Throat: posterior oropharynx normal Eyes General: appearance normal, both eyes and all related structures Pupils: PERRL EOM: EOM intact bilaterally Neck Neck: normal visual inspection and full ROM Chest Chest: normal inspection of the chest Resp Effort & Inspection: normal respiratory effort and able to speak in complete sentences Auscultation: clear to auscultation bilaterally Cardio Palpation: normal PMI Rate: regular rate Rhythm: regular rhythm Heart Sounds: S1 normal and S2 normal GI Inspection: normal to inspection Palpation: soft and no hepatosplenomegaly Auscultation: normal bowel sounds Skin General: no rashes or lesions noted Lesions: no lesions Rashes: no rashes Trauma: no lacerations or abrasions Neuro General: patient alert, patient awake, patient oriented x3 and no focal motor deficits Cranial Nerves: CN's II-XI intact bilaterally Cognition: normal cognition Speech: speech normal Gait: normal gait Motor: muscle tone normal throughout Sensory Exam: no sensory deficits noted Extrem General: full ROM and no calf tenderness Psych Appearance: grossly normal Mental Status: mental status grossly normal Speech and Movement: speech and movement normal Objective Labs 06/19/25 20:16 06/19/25 19:03 Labs: Laboratory Results - last 24 hr 06/19/25 06/19/25 06/20/25 19:03 20:16 05:45 WBC 6.0 RBC 4.06 L Hgb 10.7 L Hct 33.9 L MCV 83.5 MCH 26.4 MCHC 31.6 RDW 25.8 H Plt Count 175 Neut % (Auto) Not Reportable Lymph % (Auto) Not Reportable [place] % (Auto) Not Reportable Eos % (Auto) Not Reportable Baso % (Auto) Not Reportable Lymph # (Auto) Not Reportable [place] # (Auto) Not Reportable Baso # (Auto) Not Reportable Total Counted 100 Seg Neutrophils % 68.0 Lymphocytes % (Manual) 21.0 L Monocytes % (Manual) 11.0 Neutrophils # (Manual) 4080 RBC Morphology See below Anisocytosis 4+ H D-Dimer 1584 H Sodium 133 L Potassium 4.5 Chloride 97 L Carbon Dioxide 22 BUN 24 H Creatinine 0.74 Estimated GFR > 60 BUN/Creatinine Ratio 32.4 H Glucose 143 H Lactate 1.9 Calcium 8.7 Magnesium 2.1 Total Bilirubin 1.5 H AST 71 H ALT 44 Alkaline Phosphatase 47 Troponin I < 0.012 NT-Pro-B Natriuret Pep 2590 H Total Protein 7.9 Albumin 4.3 Globulin 3.6 Albumin/Globulin Ratio 1.2 Procalcitonin 0.246 Urine Color Yellow Urine Appearance Clear Urine pH 5.5 Ur Specific [place] 1.020 Urine Protein Trace H Urine Glucose (UA) Negative Urine Ketones 1+ H Urine Occult Blood Negative Urine Nitrate Negative Urine Bilirubin 1+ H Ur Bilirubin Confirm Negative Urine Urobilinogen 2.0 H Ur Leukocyte Esterase Negative Urine RBC None seen Urine WBC None seen Ur Squamous Epith Cells None seen Urine Bacteria None seen Ur Culture Indicated? Cult not indicated Vol Urine Centrifuged 10ml (spun) Assessment & Plan Assessment & Plan narrative: A. Fib with RVR -Admitted patient in PCU - Continue start diltiazem drip. Closely monitor blood pressure and heart rate. -- Restart diltiazem 30 mg twice daily and metoprolol 100 mg twice daily -Monitor patient's electrolyte closely. Keep K > 4, Mg > 2 -Check patient's cardiac enzymes and TSH -Check echocardiogram -Restart Eliquis Community acquired pneumonia -oxygen supplement to keep oxygenation greater than 92% -if the patient has significant hypoxic or lethargic will consider ABG -Empiric antibiotics ceftriaxone and azithromycin -continue nebulizer breathing treatments w/ Albuterol q4H as needed -2 sets of blood cultures prior to antibiotics Hyperlipidemia. Restart estimated and pravastatin COPD. Restart home medications. Albuterol as needed. I performed this consultation using real-time telehealth tools, including a live video connection between my location and the patient's location. As the provider for this telehealth service, I attest that I introduced myself to the patient, provided my credentials, disclosed my location, and determined that, based on a review of the patients chart and/or a discussion with members of the patient's treatment team, telemedicine via a real-time, two-way, interactive audio and video platform is an appropriate and effective means of providing this service. The patient and I mutually agree that this visit is appropriate for telemedicine as well. Disclaimer Note: To increase efficiency, your provider may have prepared this document using voice recognition technology. In that case, if a word or phrase is confusing, or does not make sense, this is likely due to a recognition error within the program which was not discovered during the provider?s review. If you believe an error has occurred, please notify your provider?s office at your earliest convenience, so we can correct any mistakes. Time-Based Coding :: 50 min spent with patient and on the chart (including review of chart, obtaining history, exam, reviewing outside data, placing orders, documenting exam and treatment plan, and counseling patient) on 06/20/2025. Quality VTE Deep Vein Thrombosis/Pulmonary Embolism Present on Admission: No MIPS - Admit I confirm the patient?s Advance Care Plan is present, Code status is documented, Surrogate decision maker is in patient?s record [If Yes, STOP here]: Yes MIPS - Meds 'Current medications' to include all prescriptions, [id number] products, herbals, cannabis/cannabidiol products, and vitamin/mineral/dietary (nutritional) supplements. I have utilized all available resources to obtain, update, or review the patient?s current medications. [If Yes, STOP here]: Yes
--- NOTE | 2025-06-20 06:24 | DI.ECHO.S_ITS ---
[facility]+ [facility] : : [address] : : [place] : : [id number] : : Phone: [phone] Echocardiogram Report + + :Name: JAN JUARES Study Date: 06/20/2025 Height: 75 in : :[facility] ReadingLocation: Weight: 233 lb : : Gender: Male BSA: 2.3 m2 : :: 1955 Age: 70 yrs BP: 166/85 mmHg: :Reason For Study: CHF : :Ordering Physician: JUANITA, : :LEONARDO Performed By: Lon Gracia : :Referring: LEONARDO GRANT : + + Interpretation Summary Technically difficult study secondary to poor acoustic windows. No intracardiac echo contrast utilized. - The left ventricular contractility is mildly compromised. Estimate ejection fraction is approximately 45 to 50% with no obvious segmental wall motion abnormalities. Mild concentric LVH. Unable to comment on diastolic function. - The right ventricle contractility appears to be normal. - All cardiac chambers appears to be grossly normal in size. - Tricuspid regurgitation noted on spectral display only with estimated pulmonary systolic artery pressures of 47 mmHg. - No obvious intracardiac shunts. - No obvious intracardiac masses nor thrombi. - No hemodynamically significant pericardial effusion. - Elevated right-sided filling pressures. Conclusion: Mildly compromised left ventricular systolic function with no severe valvular abnormalities per Doppler interrogation. Procedure: A two-dimensional transthoracic echocardiogram with color flow and Doppler was performed. The study quality was technically adequate. There is no prior echocardiogram noted for this patient. The heart rate ranged between 100-115 bpm during the study. Left Ventricle: The left ventricle is normal in size. Left ventricular wall thickness is mildly increased. The ejection fraction is estimated to be 45- 50%. Beat to beat variability in left ventricular contractility noted. Diastolic function is indeterminate. Right Ventricle: The right ventricle is normal in size and function. Atria: The left atrial size is normal. Right atrial size is normal. There is no Doppler evidence for an interatrial shunt. Mitral Valve: There is mild mitral annular calcification. The mitral valve leaflets appear to open well. There is no mitral valve stenosis. There is trace mitral regurgitation. Aortic Valve: The aortic valve is trileaflet. The aortic valve opens well. There is no aortic valve stenosis. There is trace aortic regurgitation. Tricuspid Valve: The tricuspid valve is not well visualized, but is grossly normal. The right ventricular systolic pressure is estimated to be at least 47 mmHg based on an estimated right atrial pressure of 15 mm Hg. Pulmonic Valve: The pulmonic valve is not well seen, but is grossly normal. There is trace pulmonic regurgitation. Great Vessels: The aortic root is normal size. The ascending aorta is normal in size. The aortic arch could not be visualized. The pulmonary artery is not well visualized, but is probably normal size. The IVC is dilated (diameter is greater than 2.1 cm) and it collapses less than 50% with a sniff. This suggests a high right atrial pressure of 15 mm Hg. Pericardium/ Pleura There is no pericardial effusion. MMode/2D Measurements & Calculations LVIDd: 5.3 cm LVOT diam: 2.1 cm LVIDs: 3.8 cm Ao root diam: 3.5 cm FS: 28.4 % asc Aorta Diam: 3.3 cm IVSd: 1.2 cm LVPWd: 1.2 cm LV walsh. diameter/BSA (cm/m^2): 2.2 LV sys. diameter/BSA (cm/m^2): 1.6 LA A2 area: 20.0 cm2 RA long axis: 6.4 cm LA A4 area: 21.7 cm2 RA area: 24.3 cm2 LA length (vol): 5.8 cm RA vol: 78.0 ml LA vol: 63.0 ml RA : 33.3 ml/m2 LA vol index: 26.9 ml/m2 IVC diam: 2.6 cm RVD1 (basal): 3.2 cm RVD2 (mid): 3.1 cm TAPSE: 1.2 cm Doppler Measurements & Calculations Ao V2 max: 165.0 cm/sec LVOT Max Armando: 97.5 cm/sec Ao V2 mean: 127.7 cm/sec LV V1 max P.8 mmHg Ao max P.9 mmHg LV V1 VTI: 15.5 cm Ao mean P.0 mmHg NANCY(I,D): 1.9 cm2 Ao V2 VTI: 27.0 cm NANCY(V,D): 2.0 cm2 sev ratio: 0.57 NANCY indexed to BSA (cm^2/m^2): 0.82 AI P1/2t: 591.0 msec AI dec slope: 205.7 cm/sec2 MV E max armando: 108.6 cm/sec TR max armando: 281.8 cm/sec Med Peak E' Armando: 8.5 cm/sec TR max P.8 mmHg E/E' med: 12.8 Lat Peak E' Armando: 7.0 cm/sec E/E' lat: 15.4 E/e' average: 14.1 MV dec time: 0.18 sec SV(LVOT): 51.7 ml Reading Physician:JEFRY
[2025-06-20 06:49] LABS: Alanine Aminotransferase 41 IU/L (<50); Albumin 3.7 g/dL (3.5-5.0); Albumin Globulin Ratio 1.1 (1.0-2.8); Alkaline Phosphatase 47 U/L (38-126); Blood Urea Nitrogen 22 mg/dL (9-20); Calcium 8.3 mg/dL (8.4-10.2); Carbon Dioxide 23 mmol/L (22-32); Chloride 97 mmol/L (98-107); Estimated Glomerular Filt Rate > 60 mL/min (>60); Globulin 3.4 g/dL (1.7-4.1); Glucose 147 mg/dL (70-99); HEMOLYSIS 19 (0-50); Magnesium 2.1 mg/dL (1.6-2.3); Potassium 4.1 mmol/L (3.4-5.1); Sodium 133 mmol/L (137-145); Total Protein 7.1 g/dL (6.3-8.2)
[2025-06-20 07:00] LABS: Troponin I < 0.012 ng/mL (0.01-0.034)
[2025-06-20 07:20] LABS: TSH w/ Reflex to FT4 0.99 uIU/mL (0.47-4.68)
--- NOTE | 2025-06-20 07:30 | PC.NURSE ---
report given to TEODORO Rodríguez
[2025-06-20] MEDS: BUDESONIDE 0.5 MG/2 ML NEB INH ×2 (07:34→19:29)
[2025-06-20] MEDS: ALBUTEROL/IPRATROPIUM 3 ML AMPUL INH ×4 (07:34→19:29)
--- NOTE | 2025-06-20 09:00 | EKG_ITS ---
[address] [address] [address] [address] Test Date: 2025-06-20 Pat Name: Maximus Govea Department: Room: 90F Gender: Male Radiocommunications Technician: : 1955 Requested By: Order Number: [id number] Reading MD: Serge Conley Measurements Intervals [place] Rate: 119 P: NM: QRS: 45 QRSD: 86 T: 45 QT: 344 QTc: 483 Interpretive Statements Atrial fibrillation with rapid ventricular response Electronically Signed On 06-20-2025 9:45:14 PST by Serge Conley
--- NOTE | 2025-06-20 09:21 | PM.HP.1 ---
History of Present Illness History of Present Illness Date Patient Seen: 06/20/25 Chief complaint: Rapid afib Narrative: 70 years old male with history of atrial fibrillation on Eliquis, COPD, CAD, chronic cough, alcohol abuse, hyperlipidemia, hypertension, diabetes mellitus type 2, presented to the ER with shortness of breath, generalized weakness, orthopnea, productive cough, congestion, nausea and vomiting in the last several days. Denies any chest pain, fever, abdominal pain, diarrhea or dysuria. EMS found the patient in A-fib with RVR and was given 15 mg IV metoprolol. In the ER he was started on Cardizem drip. Laboratory showed WBC 6, hemoglobin 10.7, D-dimer 1584, sodium 133, potassium 4.5, creatinine 0.74, glucose 143, lactate 1.9, 2.1, AST 71, ALT 44, troponin negative, BNP 2590 procalcitonin 0.24, UA negative. EKG shows atrial fibrillation with RVR with rate of 169. CT of the chest shows multifocal pneumonia and no PE. The patient was given ceftriaxone, azithromycin, diltiazem 10 mg IV and was started on Cardizem drip. Assessment & Plan Assessment & Plan narrative: A. Fib with RVR -Admitted patient in PCU - Continue start diltiazem drip. Closely monitor blood pressure and heart rate. -- Restart diltiazem 30 mg twice daily and metoprolol 100 mg twice daily -Monitor patient's electrolyte closely. Keep K > 4, Mg > 2 -Check patient's cardiac enzymes and TSH -Check echocardiogram -Restart Eliquis Community acquired pneumonia -oxygen supplement to keep oxygenation greater than 92% -if the patient has significant hypoxic or lethargic will consider ABG -Empiric antibiotics ceftriaxone and azithromycin -continue nebulizer breathing treatments w/ Albuterol q4H as needed -2 sets of blood cultures prior to antibiotics Hyperlipidemia. Restart estimated and pravastatin COPD. Restart home medications. Albuterol as needed. [facility] Medical History (Updated 06/20/25 @ 01:21 by Esvin Andrade DO) Psoriasis (~2020) Depression Tinnitus (~1990) Hemorrhoid (~1989) Dyslipidemia HTN (hypertension) Surgical History (Updated 09/10/21 @ 22:30 by Chandrika Thompson) Anesthesia History of colonoscopy (~2009) H/O colonoscopy with polypectomy (~2018) Family History (Updated 09/10/21 @ 22:32 by Chandrika Thompson) Mother Diabetes mellitus Stroke Cancer Hypertension Hyperlipidemia Sister Cancer Father Cancer Social History marital status: household members: spouse occupational status: employed Smoking Status: Never smoker alcohol intake: current substance use type: does not use Meds Home Medications and Allergies Home Medications ?Medication ?Instructions ?Recorded ?Confirmed ?Type ezetimibe 10 mg tablet 10 mg PO DAILY #90 tabs 12/15/24 05/31/25 Rx pravastatin 20 mg tablet 20 mg PO BEDTIME #90 tabs 12/15/24 05/31/25 Rx diltiazem HCl 30 mg tablet 30 mg PO BID #180 tabs 03/14/25 05/31/25 Rx mometasone-formoterol HFA 200 2 puff inhalation BID #8.8 grams 04/12/25 05/31/25 Rx mcg-5 mcg/actuation aerosol inhaler (Dulera) metoprolol succinate 100 mg 100 mg PO BID #180 tabs 05/01/25 05/31/25 Rx tablet,extended release 24 hr apixaban 5 mg tablet (Eliquis) 5 mg PO BID #180 tabs 05/16/25 05/31/25 Rx albuterol sulfate 90 mcg/actuation 2 puff inhalation Q6H PRN 05/31/25 05/31/25 Rx aerosol inhaler shortness of breath or wheezing #8.5 grams fluticasone fur. 200 mcg-umeclid 1 inh inhalation DAILY #60 ea 05/31/25 05/31/25 Rx 62.5 mcg-vilant 25 mcg inhalat.powder (Trelegy Ellipta) tirzepatide 5 mg/0.5 mL 5 mg (0.5 mL) SUBCUT QWEEK #2 mL 06/08/25 Rx subcutaneous pen injector (Mounjaro) Allergies Allergy/AdvReac Type Severity Reaction Status Date / Time Penicillins (PENICILLINS) Allergy Mild Unknown, Verified 05/31/25 11:50 advised as a child Exam Vital Signs (past 8 hours): - 06/20/25 01:30 06/20/25 01:30 06/20/25 01:41 Pulse Rate 111 H Respiratory Rate 29 H Blood Pressure 143/77 H 142/99 H Pulse Oximetry 93 Oxygen Delivery Method Oxygen Flow Rate Fraction of Inspired Oxygen 06/20/25 01:41 06/20/25 01:50 06/20/25 01:50 Pulse Rate 110 H 112 H Respiratory Rate 24 23 Blood Pressure 141/75 H Pulse Oximetry 93 92 Oxygen Delivery Method Oxygen Flow Rate Fraction of Inspired Oxygen 06/20/25 02:00 06/20/25 02:00 06/20/25 02:30 Pulse Rate 126 H 108 H Respiratory Rate 26 H 22 Blood Pressure 134/86 Pulse Oximetry 92 95 Oxygen Delivery Method Oxygen Flow Rate Fraction of Inspired Oxygen 06/20/25 02:30 06/20/25 03:00 06/20/25 03:00 Pulse Rate 128 H Respiratory Rate 29 H Blood Pressure 139/86 166/85 H Pulse Oximetry 93 Oxygen Delivery Method Oxygen Flow Rate Fraction of Inspired Oxygen 06/20/25 03:30 06/20/25 04:00 06/20/25 04:00 Pulse Rate 123 H 120 H Respiratory Rate 25 H 23 Blood Pressure 143/87 H Pulse Oximetry 93 94 Oxygen Delivery Method Nasal Cannula Oxygen Flow Rate 2 Fraction of Inspired Oxygen 06/20/25 04:30 06/20/25 05:00 06/20/25 05:00 Pulse Rate 122 H 112 H Respiratory Rate 26 H 24 Blood Pressure 155/85 H Pulse Oximetry 94 91 Oxygen Delivery Method Oxygen Flow Rate Fraction of Inspired Oxygen 06/20/25 05:30 06/20/25 06:00 06/20/25 06:00 Pulse Rate 125 H 120 H Respiratory Rate 27 H 25 H Blood Pressure 141/86 H Pulse Oximetry 93 93 Oxygen Delivery Method Nasal Cannula Oxygen Flow Rate 2 Fraction of Inspired Oxygen 06/20/25 06:30 06/20/25 07:00 06/20/25 07:00 Pulse Rate 112 H 115 H Respiratory Rate 21 24 Blood Pressure 136/79 Pulse Oximetry 93 95 Oxygen Delivery Method Oxygen Flow Rate Fraction of Inspired Oxygen 06/20/25 07:30 06/20/25 07:38 06/20/25 08:00 Pulse Rate 118 H 126 H Respiratory Rate 26 H 16 Blood Pressure 138/81 Pulse Oximetry 94 94 Oxygen Delivery Method Nasal Cannula Oxygen Flow Rate 4 Fraction of Inspired Oxygen 36 06/20/25 08:00 06/20/25 08:30 Pulse Rate 125 H 113 H Respiratory Rate 29 H 25 H Blood Pressure Pulse Oximetry 96 94 Oxygen Delivery Method Nasal Cannula Oxygen Flow Rate Fraction of Inspired Oxygen Fraction of Inspired Oxygen 36 SaO2/FiO2 Ratio 261 Oxygen Delivery Method Nasal Cannula Oxygen Flow Rate 4 Objective Labs 06/19/25 20:16 06/20/25 05:10 Labs: Laboratory Results - last 24 hr 06/19/25 06/19/25 06/20/25 19:03 20:16 05:10 WBC 6.0 RBC 4.06 L Hgb 10.7 L Hct 33.9 L MCV 83.5 MCH 26.4 MCHC 31.6 RDW 25.8 H Plt Count 175 Neut % (Auto) Not Reportable Lymph % (Auto) Not Reportable [place] % (Auto) Not Reportable Eos % (Auto) Not Reportable Baso % (Auto) Not Reportable Lymph # (Auto) Not Reportable [place] # (Auto) Not Reportable Baso # (Auto) Not Reportable Total Counted 100 Seg Neutrophils % 68.0 Lymphocytes % (Manual) 21.0 L Monocytes % (Manual) 11.0 Neutrophils # (Manual) 4080 RBC Morphology See below Anisocytosis 4+ H D-Dimer 1584 H Sodium 133 L 133 L Potassium 4.5 4.1 Chloride 97 L 97 L Carbon Dioxide 22 23 BUN 24 H 22 H Creatinine 0.74 0.65 L Estimated GFR > 60 > 60 BUN/Creatinine Ratio 32.4 H 33.8 H Glucose 143 H 147 H Lactate 1.9 Calcium 8.7 8.3 L Magnesium 2.1 2.1 Total Bilirubin 1.5 H 1.4 H AST 71 H 68 H ALT 44 41 Alkaline Phosphatase 47 47 Troponin I < 0.012 < 0.012 NT-Pro-B Natriuret Pep 2590 H Total Protein 7.9 7.1 Albumin 4.3 3.7 Globulin 3.6 3.4 Albumin/Globulin Ratio 1.2 1.1 Procalcitonin 0.246 TSH 0.99 Urine Color Urine Appearance Urine pH Ur Specific [place] Urine Protein Urine Glucose (UA) Urine Ketones Urine Occult Blood Urine Nitrate Urine Bilirubin Ur Bilirubin Confirm Urine Urobilinogen Ur Leukocyte Esterase Urine RBC Urine WBC Ur Squamous Epith Cells Urine Bacteria Ur Culture Indicated? Vol Urine Centrifuged 06/20/25 05:45 WBC RBC Hgb Hct MCV MCH MCHC RDW Plt Count Neut % (Auto) Lymph % (Auto) [place] % (Auto) Eos % (Auto) Baso % (Auto) Lymph # (Auto) [place] # (Auto) Baso # (Auto) Total Counted Seg Neutrophils % Lymphocytes % (Manual) Monocytes % (Manual) Neutrophils # (Manual) RBC Morphology Anisocytosis D-Dimer Sodium Potassium Chloride Carbon Dioxide BUN Creatinine Estimated GFR BUN/Creatinine Ratio Glucose Lactate Calcium Magnesium Total Bilirubin AST ALT Alkaline Phosphatase Troponin I NT-Pro-B Natriuret Pep Total Protein Albumin Globulin Albumin/Globulin Ratio Procalcitonin TSH Urine Color Yellow Urine Appearance Clear Urine pH 5.5 Ur Specific [place] 1.020 Urine Protein Trace H Urine Glucose (UA) Negative Urine Ketones 1+ H Urine Occult Blood Negative Urine Nitrate Negative Urine Bilirubin 1+ H Ur Bilirubin Confirm Negative Urine Urobilinogen 2.0 H Ur Leukocyte Esterase Negative Urine RBC None seen Urine WBC None seen Ur Squamous Epith Cells None seen Urine Bacteria None seen Ur Culture Indicated? Cult not indicated Vol Urine Centrifuged 10ml (spun) Assessment & Plan Time-Based Coding :: [TOTAL MINUTES] spent with patient and on the chart (including review of chart, obtaining history, exam, reviewing outside data, placing orders, documenting exam and treatment plan, and counseling patient) on [DATE]. Quality VTE Deep Vein Thrombosis/Pulmonary Embolism Present on Admission: No
[2025-06-20] MEDS: METOPROLOL TARTRATE 5 MG/5 ML INJ IV (09:23)
[2025-06-20] MEDS: EZETIMIBE 10 MG TABLET PO (09:23)
[2025-06-20] MEDS: APIXABAN 5 MG TABLET PO ×2 (09:23→20:55)
[2025-06-20] MEDS: METOPROLOL ER 50 MG TABLET 100 MG PO ×2 (09:23→20:55)
[2025-06-20 14:54] LABS: MRSA (Nasal) PCR NOT DETECTED (Not Detect)
--- NOTE | 2025-06-20 15:06 | PM.HP.1 ---
History of Present Illness History of Present Illness Chief complaint: Rapid afib Narrative: From night doctor: 70 years old male with history of atrial fibrillation on Eliquis, COPD, CAD, chronic cough, alcohol abuse, hyperlipidemia, hypertension, diabetes mellitus type 2, presented to the ER with shortness of breath, generalized weakness, orthopnea, productive cough, congestion, nausea and vomiting in the last several days. Denies any chest pain, fever, abdominal pain, diarrhea or dysuria. EMS found the patient in A-fib with RVR and was given 15 mg IV metoprolol. In the ER he was started on Cardizem drip. Laboratory showed WBC 6, hemoglobin 10.7, D-dimer 1584, sodium 133, potassium 4.5, creatinine 0.74, glucose 143, lactate 1.9, 2.1, AST 71, ALT 44, troponin negative, BNP 2590 procalcitonin 0.24, UA negative. EKG shows atrial fibrillation with RVR with rate of 169. CT of the chest shows multifocal pneumonia and no PE. The patient was given ceftriaxone, azithromycin, diltiazem 10 mg IV and was started on Cardizem drip. S: Has been short of breath and had dyspnea on exertion for about 5 days. He was also had a cough, nonproductive. No fevers, or chills. No chest pain. He denies any leg edema. He does have history of asthma, and sleep apnea and also uses oxygen at home. He lives on [facility], with his . He was on maximum diltiazem drip in the ED, we increased his oral diltiazem tablets this morning and his heart rate is improved. He has a history of heavy thank you very much alcohol use in the past. He has only been drinking about 2 drinks a day recently. He denies a history of alcohol withdrawal and is alert and oriented to person, place and time. ROS: All else reviewed and otherwise unremarkable except as noted in the history and physical. O: NAD, alert and oriented, fluent speech, calm. Normocephalic skull, EOMI, anicteric sclera, symmetric pupils. Oropharynx unremarkable, no droop. Neck supple, midline trachea, no adenopathy. Lungs are rhonchus and also have expiratory wheezing and prolonged expiratory phase with normal effort and increased rate. Heart irregular, no murmur gallop or rub. Tachycardic. Abdomen is soft, non distended and non tender. Extremities are free of edema. Skin is free of rash or lesions. Joints are not swollen or deformed. Judgment appears to be normal. IMAGING: Echo: Interpretation Summary Technically difficult study secondary to poor acoustic windows. No intracardiac echo contrast utilized. - The left ventricular contractility is mildly compromised. Estimate ejection fraction is approximately 45 to 50% with no obvious segmental wall motion abnormalities. Mild concentric LVH. Unable to comment on diastolic function. - The right ventricle contractility appears to be normal. - All cardiac chambers appears to be grossly normal in size. - Tricuspid regurgitation noted on spectral display only with estimated pulmonary systolic artery pressures of 47 mmHg. - No obvious intracardiac shunts. - No obvious intracardiac masses nor thrombi. - No hemodynamically significant pericardial effusion. - Elevated right-sided filling pressures. Conclusion: Mildly compromised left ventricular systolic function with no severe valvular abnormalities per Doppler interrogation. Chest CTA: Multifocal areas of prominent centrilobular tree-in-bud nodularity and patchy consolidation, most prominent in the right lower lobe, left lower lobe, and lingula suggestive of atypical infection, or aspiration/airways spread of infection. No pulmonary embolus. PFT from May 2025: FVC is 79% predicted, FEV1 is 65% predicted. A/P: 1. Upper respiratory illness, active. 2. Asthma exacerbation, active. 3. Atrial fibrillation with rapid response, improving. 4. Possible alcohol abuse, active. 5. Hypertension, active. 6. Possible pneumonia, active. 7. Psoriasis, active. PLAN: Respiratory swab Methylprednisolone 60 IV q.6 Continue IV antibiotics for community-acquired pneumonia. Continue bronchodilators. Oxygen, wean as able. Monitor for evidence of alcohol withdrawal. Anticipate 2 MN in the hospital, supports inpatient status. Full resuscitation is proxy decision maker, they live on [facility]. [facility] Medical History Psoriasis (~2020) Depression Tinnitus (~1990) Hemorrhoid (~1989) Dyslipidemia HTN (hypertension) Surgical History Anesthesia History of colonoscopy (~2009) H/O colonoscopy with polypectomy (~2018) Family History Mother Diabetes mellitus Stroke Cancer Hypertension Hyperlipidemia Sister Cancer Father Cancer Social History marital status: household members: spouse occupational status: employed Smoking Status: Never smoker alcohol intake: current substance use type: does not use Meds Home Medications and Allergies Home Medications ?Medication ?Instructions ?Recorded ?Confirmed ?Type ezetimibe 10 mg tablet 10 mg PO DAILY #90 tabs 12/15/24 05/31/25 Rx pravastatin 20 mg tablet 20 mg PO BEDTIME #90 tabs 12/15/24 05/31/25 Rx diltiazem HCl 30 mg tablet 30 mg PO BID #180 tabs 03/14/25 05/31/25 Rx mometasone-formoterol HFA 200 2 puff inhalation BID #8.8 grams 04/12/25 05/31/25 Rx mcg-5 mcg/actuation aerosol inhaler (Dulera) metoprolol succinate 100 mg 100 mg PO BID #180 tabs 05/01/25 05/31/25 Rx tablet,extended release 24 hr apixaban 5 mg tablet (Eliquis) 5 mg PO BID #180 tabs 05/16/25 05/31/25 Rx albuterol sulfate 90 mcg/actuation 2 puff inhalation Q6H PRN 05/31/25 05/31/25 Rx aerosol inhaler shortness of breath or wheezing #8.5 grams fluticasone fur. 200 mcg-umeclid 1 inh inhalation DAILY #60 ea 05/31/25 05/31/25 Rx 62.5 mcg-vilant 25 mcg inhalat.powder (Trelegy Ellipta) tirzepatide 5 mg/0.5 mL 5 mg (0.5 mL) SUBCUT QWEEK #2 mL 06/08/25 Rx subcutaneous pen injector (Mounsonalro) Allergies Allergy/AdvReac Type Severity Reaction Status Date / Time Penicillins (PENICILLINS) Allergy Mild Unknown, Verified 05/31/25 11:50 advised as a child Exam Vital Signs (past 8 hours): - 06/20/25 07:30 06/20/25 07:38 06/20/25 08:00 Temperature Pulse Rate 118 H 126 H Respiratory Rate 26 H 16 Blood Pressure 138/81 Pulse Oximetry 94 94 Oxygen Delivery Method Nasal Cannula Oxygen Flow Rate 4 Fraction of Inspired Oxygen 36 06/20/25 08:00 06/20/25 08:30 06/20/25 09:00 Temperature Pulse Rate 125 H 113 H 123 H Respiratory Rate 29 H 25 H 29 H Blood Pressure Pulse Oximetry 96 94 94 Oxygen Delivery Method Nasal Cannula Oxygen Flow Rate Fraction of Inspired Oxygen 06/20/25 09:00 06/20/25 09:30 06/20/25 09:30 Temperature Pulse Rate 126 H Respiratory Rate 23 Blood Pressure 141/74 H 130/74 Pulse Oximetry 93 Oxygen Delivery Method Oxygen Flow Rate Fraction of Inspired Oxygen 06/20/25 10:00 06/20/25 10:01 06/20/25 10:01 Temperature Pulse Rate 107 H 115 H Respiratory Rate 35 H 30 H Blood Pressure 110/66 Pulse Oximetry 92 92 Oxygen Delivery Method Nasal Cannula Nasal Cannula Oxygen Flow Rate 2 2 Fraction of Inspired Oxygen 06/20/25 11:00 06/20/25 11:01 06/20/25 11:01 Temperature Pulse Rate 107 H 101 H Respiratory Rate 26 H 27 H Blood Pressure 118/68 Pulse Oximetry 92 94 Oxygen Delivery Method Oxygen Flow Rate Fraction of Inspired Oxygen 06/20/25 11:30 06/20/25 11:55 06/20/25 12:00 Temperature Pulse Rate 101 H 101 H 102 H Respiratory Rate 27 H 20 30 H Blood Pressure Pulse Oximetry 93 94 92 Oxygen Delivery Method Nasal Cannula Nasal Cannula Nasal Cannula Oxygen Flow Rate 3 3 3 Fraction of Inspired Oxygen 06/20/25 12:00 06/20/25 12:30 06/20/25 12:40 Temperature 98.1 F Pulse Rate 104 H Respiratory Rate 27 H Blood Pressure 118/80 Pulse Oximetry 93 Oxygen Delivery Method Nasal Cannula Oxygen Flow Rate 3 Fraction of Inspired Oxygen 06/20/25 13:03 06/20/25 13:21 06/20/25 14:02 Temperature Pulse Rate 106 H Respiratory Rate 20 Blood Pressure 107/64 120/71 Pulse Oximetry 95 Oxygen Delivery Method Nasal Cannula Oxygen Flow Rate 4 Fraction of Inspired Oxygen Fraction of Inspired Oxygen 36 SaO2/FiO2 Ratio 261 Oxygen Delivery Method Nasal Cannula Oxygen Flow Rate 4 Objective ECG Impression: Intervals [place] Rate: 119 P: IA: QRS: 45 QRSD: 86 T: 45 QT: 344 QTc: 483 Interpretive Statements Atrial fibrillation with rapid ventricular response Labs 06/19/25 20:16 06/20/25 05:10 Labs: Laboratory Results - last 24 hr 06/19/25 06/19/25 06/20/25 19:03 20:16 05:10 WBC 6.0 RBC 4.06 L Hgb 10.7 L Hct 33.9 L MCV 83.5 MCH 26.4 MCHC 31.6 RDW 25.8 H Plt Count 175 Neut % (Auto) Not Reportable Lymph % (Auto) Not Reportable [place] % (Auto) Not Reportable Eos % (Auto) Not Reportable Baso % (Auto) Not Reportable Lymph # (Auto) Not Reportable [place] # (Auto) Not Reportable Baso # (Auto) Not Reportable Total Counted 100 Seg Neutrophils % 68.0 Lymphocytes % (Manual) 21.0 L Monocytes % (Manual) 11.0 Neutrophils # (Manual) 4080 RBC Morphology See below Anisocytosis 4+ H D-Dimer 1584 H Sodium 133 L 133 L Potassium 4.5 4.1 Chloride 97 L 97 L Carbon Dioxide 22 23 BUN 24 H 22 H Creatinine 0.74 0.65 L Estimated GFR > 60 > 60 BUN/Creatinine Ratio 32.4 H 33.8 H Glucose 143 H 147 H Lactate 1.9 Calcium 8.7 8.3 L Magnesium 2.1 2.1 Total Bilirubin 1.5 H 1.4 H AST 71 H 68 H ALT 44 41 Alkaline Phosphatase 47 47 Troponin I < 0.012 < 0.012 NT-Pro-B Natriuret Pep 2590 H Total Protein 7.9 7.1 Albumin 4.3 3.7 Globulin 3.6 3.4 Albumin/Globulin Ratio 1.2 1.1 Procalcitonin 0.246 TSH 0.99 Urine Color Urine Appearance Urine pH Ur Specific [place] Urine Protein Urine Glucose (UA) Urine Ketones Urine Occult Blood Urine Nitrate Urine Bilirubin Ur Bilirubin Confirm Urine Urobilinogen Ur Leukocyte Esterase Urine RBC Urine WBC Ur Squamous Epith Cells Urine Bacteria Ur Culture Indicated? Vol Urine Centrifuged Nasal Screen MRSA (PCR) 06/20/25 06/20/25 05:45 12:59 WBC RBC Hgb Hct MCV MCH MCHC RDW Plt Count Neut % (Auto) Lymph % (Auto) [place] % (Auto) Eos % (Auto) Baso % (Auto) Lymph # (Auto) [place] # (Auto) Baso # (Auto) Total Counted Seg Neutrophils % Lymphocytes % (Manual) Monocytes % (Manual) Neutrophils # (Manual) RBC Morphology Anisocytosis D-Dimer Sodium Potassium Chloride Carbon Dioxide BUN Creatinine Estimated GFR BUN/Creatinine Ratio Glucose Lactate Calcium Magnesium Total Bilirubin AST ALT Alkaline Phosphatase Troponin I NT-Pro-B Natriuret Pep Total Protein Albumin Globulin Albumin/Globulin Ratio Procalcitonin TSH Urine Color Yellow Urine Appearance Clear Urine pH 5.5 Ur Specific [place] 1.020 Urine Protein Trace H Urine Glucose (UA) Negative Urine Ketones 1+ H Urine Occult Blood Negative Urine Nitrate Negative Urine Bilirubin 1+ H Ur Bilirubin Confirm Negative Urine Urobilinogen 2.0 H Ur Leukocyte Esterase Negative Urine RBC None seen Urine WBC None seen Ur Squamous Epith Cells None seen Urine Bacteria None seen Ur Culture Indicated? Cult not indicated Vol Urine Centrifuged 10ml (spun) Nasal Screen MRSA (PCR) Not detected Assessment & Plan Time-Based Coding :: 35 min spent with patient and on the chart (including review of chart, obtaining history, exam, reviewing outside data, placing orders, documenting exam and treatment plan, and counseling patient) on 06/20. Quality VTE Deep Vein Thrombosis/Pulmonary Embolism Present on Admission: No MIPS - Admit I confirm the patient?s Advance Care Plan is present, Code status is documented, Surrogate decision maker is in patient?s record [If Yes, STOP here]: Yes MIPS - Meds 'Current medications' to include all prescriptions, [id number] products, herbals, cannabis/cannabidiol products, and vitamin/mineral/dietary (nutritional) supplements. I have utilized all available resources to obtain, update, or review the patient?s current medications. [If Yes, STOP here]: Yes
[2025-06-20] MEDS: methylPREDNISolone succ 125 MG/2 ML VIAL 60 MG IV ×2 (15:24→20:54)
[2025-06-20 16:06] LABS: Coronavirus NL 63 Not Detected (Not Detect); SARS- CoV-2 Not Detected (Not Detecte)
[2025-06-20] MEDS: MELATONIN 3 MG TABLET 9 MG PO (20:55)
[2025-06-21] VITALS (24 sets, daily range): BP systolic 100–124; BP diastolic 60–89; PULSE 62–140; RESP 14–24; TEMP 36–36.9; O2SAT 92–100
[2025-06-21] MEDS: ALBUTEROL/IPRATROPIUM 3 ML AMPUL INH ×5 (00:08→18:49)
[2025-06-21] MEDS: AZITHROMYCIN 500 MG in DEXTROSE 5% IN WATER 250 ML 250 MG IV (01:50)
[2025-06-21] MEDS: cefTRIAXone 2,000 MG in SODIUM CHLORIDE 0.9% 100 ML 200 MG IV (03:24)
[2025-06-21] MEDS: methylPREDNISolone succ 125 MG/2 ML VIAL 60 MG IV ×4 (03:24→21:07)
[2025-06-21 04:50] LABS: Alanine Aminotransferase 41 IU/L (<50); Albumin 3.5 g/dL (3.5-5.0); Albumin Globulin Ratio 1.1 (1.0-2.8); Alkaline Phosphatase 51 U/L (38-126); Blood Urea Nitrogen 22 mg/dL (9-20); Calcium 8.3 mg/dL (8.4-10.2); Carbon Dioxide 22 mmol/L (22-32); Chloride 100 mmol/L (98-107); Estimated Glomerular Filt Rate > 60 mL/min (>60); Globulin 3.1 g/dL (1.7-4.1); Glucose 260 mg/dL (70-99); HEMOLYSIS < 15 (0-50); Magnesium 2.1 mg/dL (1.6-2.3); Potassium 4.1 mmol/L (3.4-5.1); Sodium 133 mmol/L (137-145); Total Protein 6.6 g/dL (6.3-8.2)
--- NOTE | 2025-06-21 06:41 | PC.NURSE ---
Pure Culture Operator Note-Patient has been A/Ox4, little forgetful and impulsive. Remains in A-fib, mostly controlled under 100, will increase briefly to 130s with activity. Diltiazem gtt decreased to 5mg/hr at 2200, then off at 0200. PO Diltiazem and PO metoprolol XL started. Denies chest pain or palpitations, says not as short of breathe as he was. Wore hospital Cpap overnight, otherwise on 3L NC.
[2025-06-21] MEDS: BUDESONIDE 0.5 MG/2 ML NEB INH ×2 (07:42→18:49)
--- NOTE | 2025-06-21 08:00 | P.PN_ITS ---
Subjective Subjective Date Patient Seen: 06/21/25 Interval history: 70 years old male with history of atrial fibrillation on Eliquis, COPD, CAD, chronic cough, alcohol abuse, hyperlipidemia, hypertension, diabetes mellitus type 2, presented to the ER with shortness of breath, generalized weakness, orthopnea, productive cough, congestion, nausea and vomiting in the last several days. Denies any chest pain, fever, abdominal pain, diarrhea or dysuria. EMS found the patient in A-fib with RVR and was given 15 mg IV metoprolol. In the ER he was started on Cardizem drip. Laboratory showed WBC 6, hemoglobin 10.7, D-dimer 1584, sodium 133, potassium 4.5, creatinine 0.74, glucose 143, lactate 1.9, 2.1, AST 71, ALT 44, troponin negative, BNP 2590 procalcitonin 0.24, UA negative. EKG shows atrial fibrillation with RVR with rate of 169. CT of the chest shows multifocal pneumonia and no PE. The patient was given ceftriaxone, azithromycin, diltiazem 10 mg IV and was started on Cardizem drip. 06/20: Has been short of breath and had dyspnea on exertion for about 5 days. He was also had a cough, nonproductive. No fevers, or chills. No chest pain. He denies any leg edema. He does have history of asthma, and sleep apnea and also uses oxygen at home. He lives on [facility], with his . He was on maximum diltiazem drip in the ED, we increased his oral diltiazem tablets this morning and his heart rate is improved. He has a history of heavy thank you very much alcohol use in the past. He has only been drinking about 2 drinks a day recently. He denies a history of alcohol withdrawal and is alert and oriented to person, place and time. 06/21: He is now off diltiazem drip. He is short of breath when he goes to the bathroom. The BMP and liver function tests are normal. He continues on ceftriaxone and Solu-Medrol. NAD, alert and oriented, fluent speech, calm. Normocephalic skull Lungs are rhonchus and also have expiratory wheezing and prolonged expiratory phase with normal effort and increased rate. Heart irregular, no murmur gallop or rub. Tachycardic. Extremities are free of edema. Skin is free of rash or lesions. Joints are not swollen or deformed. Judgment appears to be normal. IMAGING: Echo: Interpretation Summary Technically difficult study secondary to poor acoustic windows. No intracardiac echo contrast utilized. - The left ventricular contractility is mildly compromised. Estimate ejection fraction is approximately 45 to 50% with no obvious segmental wall motion abnormalities. Mild concentric LVH. Unable to comment on diastolic function. - The right ventricle contractility appears to be normal. - All cardiac chambers appears to be grossly normal in size. - Tricuspid regurgitation noted on spectral display only with estimated pulmonary systolic artery pressures of 47 mmHg. - No obvious intracardiac shunts. - No obvious intracardiac masses nor thrombi. - No hemodynamically significant pericardial effusion. - Elevated right-sided filling pressures. Conclusion: Mildly compromised left ventricular systolic function with no severe valvular abnormalities per Doppler interrogation. Chest CTA: Multifocal areas of prominent centrilobular tree-in-bud nodularity and patchy consolidation, most prominent in the right lower lobe, left lower lobe, and lingula suggestive of atypical infection, or aspiration/airways spread of infection. No pulmonary embolus. PFT from May 2025: FVC is 79% predicted, FEV1 is 65% predicted. A/P: 1. Upper respiratory illness, active. 2. Asthma exacerbation, active. 3. Atrial fibrillation with rapid response, improving. 4. Possible alcohol abuse, active. 5. Hypertension, active. 6. Possible pneumonia, active. 7. Psoriasis, active. PLAN: AFib rate control with metoprolol and diltiazem. Apixaban. Methylprednisolone 60 IV q.6 Continue IV antibiotics for community-acquired pneumonia. Continue bronchodilators. Oxygen, wean as able. Monitor for evidence of alcohol withdrawal. Full resuscitation is proxy decision maker, they live on [facility]. Exam Vital Signs (past 8 hours): - 06/21/25 00:01 06/21/25 00:08 06/21/25 00:13 Temperature 98.4 F Pulse Rate 88 90 87 Respiratory Rate 19 23 Blood Pressure 108/64 108/64 Pulse Oximetry 93 96 Oxygen Delivery Method Nasal Cannula Oxygen Flow Rate 3 3 Fraction of Inspired Oxygen 32 06/21/25 01:01 06/21/25 02:01 06/21/25 03:01 Temperature 98.4 F Pulse Rate 90 90 83 Respiratory Rate 19 18 20 Blood Pressure 124/67 114/73 120/78 Pulse Oximetry 92 92 95 Oxygen Delivery Method Oxygen Flow Rate 3 3 3 Fraction of Inspired Oxygen 06/21/25 04:01 06/21/25 04:30 06/21/25 05:01 Temperature 98.3 F Pulse Rate 86 Respiratory Rate 19 20 Blood Pressure 107/74 111/66 Pulse Oximetry 93 94 Oxygen Delivery Method Nasal Cannula Oxygen Flow Rate 3 3 Fraction of Inspired Oxygen 06/21/25 05:41 06/21/25 07:44 Temperature Pulse Rate 94 H 95 H Respiratory Rate 20 Blood Pressure 100/77 Pulse Oximetry 97 Oxygen Delivery Method Nasal Cannula Oxygen Flow Rate 4 Fraction of Inspired Oxygen 36 Fraction of Inspired Oxygen 36 SaO2/FiO2 Ratio 269 Oxygen Delivery Method Nasal Cannula Oxygen Flow Rate 4 Objective Labs 06/19/25 20:16 06/21/25 03:31 Labs: Laboratory Results - last 24 hr 06/20/25 06/20/25 06/21/25 12:59 15:00 03:31 Sodium 133 L Potassium 4.1 Chloride 100 Carbon Dioxide 22 BUN 22 H Creatinine 0.62 L Estimated GFR > 60 BUN/Creatinine Ratio 35.5 H Glucose 260 H D Calcium 8.3 L Magnesium 2.1 Total Bilirubin 1.1 AST 49 ALT 41 Alkaline Phosphatase 51 Total Protein 6.6 Albumin 3.5 Globulin 3.1 Albumin/Globulin Ratio 1.1 Nasal Screen MRSA (PCR) Not detected Chlamy pneumoniae PCR Not detected Adenovirus (PCR) Not detected B. pertussis DNA (PCR) Not detected B.parapertussis DNA PCR Not detected Coronavirus OC43 (PCR) Not detected Coronavirus HKU1 (PCR) Not detected Coronavirus 229E (PCR) Not detected SARS-CoV-2 (PCR) Not detected Coronavirus NL63 (PCR) Not detected Human Metapneumovir PCR Not detected Influenza Type A (PCR) Not detected Influenza Type B (PCR) Not detected M. pneumoniae (PCR) Detected H Parainfluenza 1 (PCR) Not detected Parainfluenza 2 (PCR) Not detected Parainfluenza 3 (PCR) Not detected Parainfluenza 4 (PCR) Not detected RSV (PCR) Not detected Entero/Rhino (PCR) Not detected PFSH Medical History Psoriasis (~2020) Depression Tinnitus (~1990) Hemorrhoid (~1989) Dyslipidemia HTN (hypertension) Surgical History Anesthesia History of colonoscopy (~2009) H/O colonoscopy with polypectomy (~2018) Family History Mother Diabetes mellitus Stroke Cancer Hypertension Hyperlipidemia Sister Cancer Father Cancer Social History marital status: household members: spouse occupational status: employed Smoking Status: Never smoker alcohol intake: current substance use type: does not use Assessment & Plan Time-Based Coding :: [TOTAL MINUTES] spent with patient and on the chart (including review of chart, obtaining history, exam, reviewing outside data, placing orders, documenting exam and treatment plan, and counseling patient) on [DATE]. Quality VTE Deep Vein Thrombosis/Pulmonary Embolism Present on Admission: No
[2025-06-21] MEDS: METOPROLOL ER 50 MG TABLET 100 MG PO ×2 (08:40→21:04)
[2025-06-21] MEDS: SODIUM CHLORIDE 0.9% FLUSH 10 ML IV ×2 (08:41→21:07)
[2025-06-21] MEDS: APIXABAN 5 MG TABLET PO ×2 (08:41→21:04)
[2025-06-21] MEDS: EZETIMIBE 10 MG TABLET PO (08:41)
--- NOTE | 2025-06-21 09:27 | PC.NURSE ---
0924 REPORT GIVEN TO TEODORO MENDEZ.
--- NOTE | 2025-06-21 15:51 | PC.NURSE ---
pt sitting in the chair talking on the phone complete sentences, nad, will continue tomonitor.
--- NOTE | 2025-06-21 16:16 | CM.DANOTE ---
DCP Assessment Note: Pt is a 70yo male resident of [facility], is admitted for pneumonia, shortness of breath. Pt lives in a house with his , Jurgen. Pt's Primary Care Provider is Dr. Maximus Salguero and insurance is Medicare and [facility]. Reviewed chart and discussed with multidisciplinary team pt's medical status and initial discharge needs. Per hospitalist, pt to obtain IV abx and steroids, likely discharge on Thursday, 06/23. Downgraded to Acute care status today. DCP met w/patient at bedside; introduced self and role. Patient was found in bed, alert and oriented, cooperative with assessment. Pt confirmed living situation and good support in . Pt expressed preference in dc home when breathing better, does not utilize O2 during the day, only at night. Pt has no hx of SNF or HH. No discharge needs identified at this time. Plan: Anticipating discharge home with spouse to transport on Thu, 06/23 or when med cleared. CM team will follow closely for coordination of discharge plans. Iveth Capps [facility] Discharge Planning/Care Management CM Discharge Assessment Start: 06/20/25 03:12 Freq: Status: Active Protocol: Document 06/21/25 16:07 MW (Rec: 06/21/25 16:16 MW [id number]) Discharge Planning Assessment Assigned Discharge KENDRICK Lazaro Validation Technician Provider Dr. Maximus Salguero Insurance Medicare DPOA/Assigned Jurgen Majano, Spouse Designee Name Contact Information [phone] Advance Directives? Yes Advance Directives No on File History Provided By Patient Has Patient been No admitted in last 30 days? Prior Living House Arrangements Household Members spouse Type of Drives own vehicle transporation used prior to admit Independent with ADL Yes 's Is patient alert and Yes oriented? DME Already Rented / Oxygen Owned Discharge Plan Home Referrals Initiated None needed Review Status In Process Please Provide Date 06/21/25 Initial DC Assessment Was Performed Next Review Type Continued Stay Review
--- NOTE | 2025-06-21 16:57 | PC.NURSE ---
pt sitting up in chair, eating food, watching tv, call light with in reach, nad, will continue to monitor
[2025-06-21] MEDS: BENZONATATE 100 MG CAPSULE PO (21:04)
[2025-06-21] MEDS: PRAVASTATIN 20 MG TABLET PO (21:04)
[2025-06-21] MEDS: MELATONIN 3 MG TABLET 9 MG PO (21:08)
[2025-06-22] VITALS (14 sets, daily range): BP systolic 102–128; BP diastolic 67–80; PULSE 62–110; RESP 16–20; TEMP 36.1–36.8; O2SAT 93–100
[2025-06-22] MEDS: cefTRIAXone 2,000 MG in SODIUM CHLORIDE 0.9% 100 ML 200 MG IV (03:03)
[2025-06-22] MEDS: methylPREDNISolone succ 125 MG/2 ML VIAL 60 MG IV ×4 (03:09→20:32)
[2025-06-22] MEDS: AZITHROMYCIN 500 MG in DEXTROSE 5% IN WATER 250 ML 250 MG IV (03:46)
--- NOTE | 2025-06-22 07:58 | PM.PN.1 ---
Subjective Subjective Date Patient Seen: 06/22/25 Interval history: 70 years old male with history of atrial fibrillation on Eliquis, COPD, CAD, chronic cough, alcohol abuse, hyperlipidemia, hypertension, diabetes mellitus type 2, presented to the ER with shortness of breath, generalized weakness, orthopnea, productive cough, congestion, nausea and vomiting in the last several days. Denies any chest pain, fever, abdominal pain, diarrhea or dysuria. EMS found the patient in A-fib with RVR and was given 15 mg IV metoprolol. In the ER he was started on Cardizem drip. Laboratory showed WBC 6, hemoglobin 10.7, D-dimer 1584, sodium 133, potassium 4.5, creatinine 0.74, glucose 143, lactate 1.9, 2.1, AST 71, ALT 44, troponin negative, BNP 2590 procalcitonin 0.24, UA negative. EKG shows atrial fibrillation with RVR with rate of 169. CT of the chest shows multifocal pneumonia and no PE. The patient was given ceftriaxone, azithromycin, diltiazem 10 mg IV and was started on Cardizem drip. 06/20: Has been short of breath and had dyspnea on exertion for about 5 days. He was also had a cough, nonproductive. No fevers, or chills. No chest pain. He denies any leg edema. He does have history of asthma, and sleep apnea and also uses oxygen at home. He lives on [facility], with his . He was on maximum diltiazem drip in the ED, we increased his oral diltiazem tablets this morning and his heart rate is improved. He has a history of heavy thank you very much alcohol use in the past. He has only been drinking about 2 drinks a day recently. He denies a history of alcohol withdrawal and is alert and oriented to person, place and time. 06/21: He is now off diltiazem drip. He is short of breath when he goes to the bathroom. The BMP and liver function tests are normal. He continues on ceftriaxone and Solu-Medrol. 06/22: He mentions severe shortness breath with minimal exertion. His echocardiogram is reviewed. He had a 45-50% ejection fraction. He is wheezing heavily so these symptoms are likely related to COPD? His latest hemoglobin was 10.7 on 12/15. We will be putting him on Lasix for 2 days as his legs have swollen with 2+ edema. NAD, alert and oriented, fluent speech, calm. Normocephalic skull Lungs have wheezes bilaterally with crackles at the right base. Heart irregular, no murmur gallop or rub. Extremities are 2+ pitting bilateral ankle edema Skin is free of rash or lesions. Joints are not swollen or deformed. Judgment appears to be normal. IMAGING: Echo: Interpretation Summary Technically difficult study secondary to poor acoustic windows. No intracardiac echo contrast utilized. - The left ventricular contractility is mildly compromised. Estimate ejection fraction is approximately 45 to 50% with no obvious segmental wall motion abnormalities. Mild concentric LVH. Unable to comment on diastolic function. - The right ventricle contractility appears to be normal. - All cardiac chambers appears to be grossly normal in size. - Tricuspid regurgitation noted on spectral display only with estimated pulmonary systolic artery pressures of 47 mmHg. - No obvious intracardiac shunts. - No obvious intracardiac masses nor thrombi. - No hemodynamically significant pericardial effusion. - Elevated right-sided filling pressures. Conclusion: Mildly compromised left ventricular systolic function with no severe valvular abnormalities per Doppler interrogation. Chest CTA: Multifocal areas of prominent centrilobular tree-in-bud nodularity and patchy consolidation, most prominent in the right lower lobe, left lower lobe, and lingula suggestive of atypical infection, or aspiration/airways spread of infection. No pulmonary embolus. PFT from May 2025: FVC is 79% predicted, FEV1 is 65% predicted. A/P: 1. Upper respiratory illness, active. 2. Asthma exacerbation, active. 3. Atrial fibrillation with rapid response, improving. 4. Possible alcohol abuse, active. 5. Hypertension, active. 6. Possible pneumonia, active. 7. Psoriasis, active. 8. Cardiomyopathy PLAN: AFib rate control with metoprolol and diltiazem. Apixaban. Decrease Metoprolol due to Asthma. Methylprednisolone 60 IV q.6 Continue IV antibiotics for community-acquired pneumonia. Continue bronchodilators. Oxygen, wean as able. Monitor for evidence of alcohol withdrawal. Lasix 40 mg daily for 2 days Full resuscitation is proxy decision maker, they live on [facility]. Exam Vital Signs (past 8 hours): - 06/22/25 00:00 06/22/25 00:17 06/22/25 00:20 Temperature 98.3 F Pulse Rate 86 63 86 Respiratory Rate 20 Blood Pressure 117/67 117/67 117/67 Pulse Oximetry 93 Oxygen Delivery Method Oxygen Flow Rate 0 06/22/25 03:16 06/22/25 04:35 06/22/25 05:39 Temperature 97.1 F L Pulse Rate 87 87 Respiratory Rate 18 Blood Pressure 102/70 102/70 Pulse Oximetry 93 Oxygen Delivery Method CPAP Oxygen Flow Rate 0 Fraction of Inspired Oxygen 24 SaO2/FiO2 Ratio 400 Oxygen Delivery Method CPAP Oxygen Flow Rate 0 Objective Labs 06/19/25 20:16 06/22/25 08:58 PFSH Medical History Psoriasis (~2020) Depression Tinnitus (~1990) Hemorrhoid (~1989) Dyslipidemia HTN (hypertension) Surgical History Anesthesia History of colonoscopy (~2009) H/O colonoscopy with polypectomy (~2018) Family History Mother Diabetes mellitus Stroke Cancer Hypertension Hyperlipidemia Sister Cancer Father Cancer Social History marital status: household members: spouse occupational status: employed alcohol intake: current substance use type: does not use Assessment & Plan Time-Based Coding :: [TOTAL MINUTES] spent with patient and on the chart (including review of chart, obtaining history, exam, reviewing outside data, placing orders, documenting exam and treatment plan, and counseling patient) on [DATE]. Quality VTE Deep Vein Thrombosis/Pulmonary Embolism Present on Admission: No
[2025-06-22] MEDS: ALBUTEROL/IPRATROPIUM 3 ML AMPUL INH ×4 (08:39→19:40)
[2025-06-22] MEDS: BUDESONIDE 0.5 MG/2 ML NEB INH ×2 (08:39→19:40)
[2025-06-22] MEDS: METOPROLOL ER 50 MG TABLET 100 MG PO (09:13)
[2025-06-22] MEDS: SODIUM CHLORIDE 0.9% FLUSH 10 ML IV ×2 (09:13→20:32)
[2025-06-22] MEDS: APIXABAN 5 MG TABLET PO ×2 (09:15→20:29)
[2025-06-22] MEDS: EZETIMIBE 10 MG TABLET PO (09:15)
[2025-06-22 09:58] LABS: Alanine Aminotransferase 56 IU/L (<50); Albumin 3.6 g/dL (3.5-5.0); Albumin Globulin Ratio 1.1 (1.0-2.8); Alkaline Phosphatase 51 U/L (38-126); Blood Urea Nitrogen 29 mg/dL (9-20); Calcium 8.9 mg/dL (8.4-10.2); Carbon Dioxide 21 mmol/L (22-32); Chloride 100 mmol/L (98-107); Estimated Glomerular Filt Rate > 60 mL/min (>60); Globulin 3.2 g/dL (1.7-4.1); Glucose 276 mg/dL (70-99); HEMOLYSIS < 15 (0-50); Magnesium 2.1 mg/dL (1.6-2.3); Potassium 4.8 mmol/L (3.4-5.1); Sodium 133 mmol/L (137-145); Total Protein 6.8 g/dL (6.3-8.2)
[2025-06-22] MEDS: FUROSEMIDE 40 MG TABLET PO (10:19)
[2025-06-22] MEDS: INSULIN LISPRO 100 UNIT/ML 3ML VIAL SUBCUT ×4 (13:19→20:54)
[2025-06-22] MEDS: INSULIN GLARGINE 100 UNIT/ML 3ML PEN 15 UNIT SUBCUT (17:57)
[2025-06-22] MEDS: PRAVASTATIN 20 MG TABLET PO (20:29)
[2025-06-22] MEDS: METOPROLOL ER 50 MG TABLET PO (20:29)
[2025-06-22] MEDS: MELATONIN 3 MG TABLET 9 MG PO (20:32)
[2025-06-23] VITALS (15 sets, daily range): BP systolic 106–157; BP diastolic 75–97; PULSE 68–96; RESP 2–20; TEMP 36.1–36.5; O2SAT 73–98
[2025-06-23] MEDS: cefTRIAXone 2,000 MG in SODIUM CHLORIDE 0.9% 100 ML 200 MG IV (03:38)
[2025-06-23] MEDS: methylPREDNISolone succ 125 MG/2 ML VIAL 60 MG IV ×4 (03:39→21:21)
[2025-06-23] MEDS: BENZONATATE 100 MG CAPSULE PO ×2 (03:39→21:18)
[2025-06-23 06:11] LABS: Add Manual Diff / Slide Review NO; Hematocrit 33.0 % (41-53); Hemoglobin 10.3 g/dL (13.5-17.5); Lymphocytes Absolute Auto 700 /uL (1100-4500); Mean Corpuscular HGB Conc 31.1 % (30-36); Mean Corpuscular Hemoglobin 26.0 PG (26-34); Mean Corpuscular Volume 83.5 fL (80-100); Platelet Count 235 X10^3/uL (150-400)
[2025-06-23 06:29] LABS: Blood Urea Nitrogen 30 mg/dL (9-20); Calcium 8.7 mg/dL (8.4-10.2); Carbon Dioxide 23 mmol/L (22-32); Chloride 101 mmol/L (98-107); Estimated Glomerular Filt Rate > 60 mL/min (>60); Glucose 275 mg/dL (70-99); HEMOLYSIS < 15 (0-50); Potassium 4.3 mmol/L (3.4-5.1); Sodium 136 mmol/L (137-145)
[2025-06-23 06:31] LABS: Hemoglobin A1C% w Est Avg Glu 6.8 % (4.0-6.0)
[2025-06-23 06:37] LABS: NT-proBNP (BNP-Adult 18+) 1300 pg/mL (<125)
[2025-06-23 06:42] LABS: Anisocytosis 4+
--- NOTE | 2025-06-23 08:17 | PM.PN.1 ---
Subjective Subjective Date Patient Seen: 06/23/25 Interval history: 70 years old male with history of atrial fibrillation on Eliquis, COPD, CAD, chronic cough, alcohol abuse, hyperlipidemia, hypertension, diabetes mellitus type 2, presented to the ER with shortness of breath, generalized weakness, orthopnea, productive cough, congestion, nausea and vomiting in the last several days. Denies any chest pain, fever, abdominal pain, diarrhea or dysuria. EMS found the patient in A-fib with RVR and was given 15 mg IV metoprolol. In the ER he was started on Cardizem drip. Laboratory showed WBC 6, hemoglobin 10.7, D-dimer 1584, sodium 133, potassium 4.5, creatinine 0.74, glucose 143, lactate 1.9, 2.1, AST 71, ALT 44, troponin negative, BNP 2590 procalcitonin 0.24, UA negative. EKG shows atrial fibrillation with RVR with rate of 169. CT of the chest shows multifocal pneumonia and no PE. The patient was given ceftriaxone, azithromycin, diltiazem 10 mg IV and was started on Cardizem drip. 06/20: Has been short of breath and had dyspnea on exertion for about 5 days. He was also had a cough, nonproductive. No fevers, or chills. No chest pain. He denies any leg edema. He does have history of asthma, and sleep apnea and also uses oxygen at home. He lives on [facility], with his . He was on maximum diltiazem drip in the ED, we increased his oral diltiazem tablets this morning and his heart rate is improved. He has a history of heavy thank you very much alcohol use in the past. He has only been drinking about 2 drinks a day recently. He denies a history of alcohol withdrawal and is alert and oriented to person, place and time. 06/21: He is now off diltiazem drip. He is short of breath when he goes to the bathroom. The BMP and liver function tests are normal. He continues on ceftriaxone and Solu-Medrol. 06/22: He mentions severe shortness breath with minimal exertion. His echocardiogram is reviewed. He had a 45-50% ejection fraction. He is wheezing heavily so these symptoms are likely related to COPD? His latest hemoglobin was 10.7 on 12/15. We will be putting him on Lasix for 2 days as his legs have swollen with 2+ edema. 06/23: His respiratory panel was positive for mycoplasma pneumonia. It looks like he was treated with azithromycin initially. We are confirming that he had a full 3 day treatment course. The ceftriaxone can be stopped. We will repeat the chest x-ray today. He seems to be breathing just slightly better today. His edema is still quite impressive. He is talking faster, planning to walk in the hallway, and seems to have turned the corner yesterday. The hemoglobin is 10.3. The BNP is normal. The glucose is 310 with an ALT of 56. We will increase the Lantus from 15 units up to 25 units. The BNP was 1300. NAD, alert and oriented, fluent speech, calm. Normocephalic skull Lungs are clear to auscultation bilaterally today. Heart irregular, no murmur gallop or rub. Extremities have 1+ pitting bilateral ankle edema Skin is free of rash or lesions. Joints are not swollen or deformed. Judgment appears to be normal. IMAGING: Echo: Interpretation Summary Technically difficult study secondary to poor acoustic windows. No intracardiac echo contrast utilized. - The left ventricular contractility is mildly compromised. Estimate ejection fraction is approximately 45 to 50% with no obvious segmental wall motion abnormalities. Mild concentric LVH. Unable to comment on diastolic function. - The right ventricle contractility appears to be normal. - All cardiac chambers appears to be grossly normal in size. - Tricuspid regurgitation noted on spectral display only with estimated pulmonary systolic artery pressures of 47 mmHg. - No obvious intracardiac shunts. - No obvious intracardiac masses nor thrombi. - No hemodynamically significant pericardial effusion. - Elevated right-sided filling pressures. Conclusion: Mildly compromised left ventricular systolic function with no severe valvular abnormalities per Doppler interrogation. Chest CTA: Multifocal areas of prominent centrilobular tree-in-bud nodularity and patchy consolidation, most prominent in the right lower lobe, left lower lobe, and lingula suggestive of atypical infection, or aspiration/airways spread of infection. No pulmonary embolus. PFT from May 2025: FVC is 79% predicted, FEV1 is 65% predicted. A/P: 1. Mycoplasma ?atypical pneumonia, active. 2. Asthma exacerbation, active. 3. Atrial fibrillation with rapid response, improving. 4. Possible alcohol abuse, active. 5. Hypertension, active. 6. Psoriasis, active. 7. Cardiomyopathy PLAN: AFib rate control with metoprolol and diltiazem. Apixaban. Decreased Metoprolol dose due to bronchospasm. Wheezing then improved. Methylprednisolone 60 IV q.6 Confirm that he received the full 3 day course of azithromycin for the mycoplasma atypical pneumonia. Stop ceftriaxone. Continue bronchodilators. Oxygen, wean as able. Monitor for evidence of alcohol withdrawal. Lasix 40 mg daily Full resuscitation is proxy decision maker, they live on [facility]. Exam Vital Signs (past 8 hours): - 06/23/25 00:58 06/23/25 05:00 06/23/25 06:04 Temperature 97.1 F L Pulse Rate 68 73 70 Respiratory Rate 18 Blood Pressure 156/76 H 120/85 156/76 H Pulse Oximetry 95 Oxygen Flow Rate 0 Fraction of Inspired Oxygen 24 SaO2/FiO2 Ratio 400 Oxygen Delivery Method Room Air Oxygen Flow Rate 0 Objective Labs 06/23/25 05:30 06/23/25 05:30 Labs: Laboratory Results - last 24 hr 06/22/25 06/22/25 06/22/25 08:58 13:16 16:36 WBC RBC Hgb Hct MCV MCH MCHC RDW Plt Count Neut % (Auto) Lymph % (Auto) [place] % (Auto) Eos % (Auto) Baso % (Auto) Neut # (Auto) Lymph # (Auto) [place] # (Auto) Eos # (Auto) Baso # (Auto) Platelet Estimate RBC Morphology Anisocytosis Sodium 133 L Potassium 4.8 Chloride 100 Carbon Dioxide 21 L BUN 29 H Creatinine 0.70 Estimated GFR > 60 BUN/Creatinine Ratio 41.4 H Glucose 276 H POC Whole Bld Glucose 321 H 355 H Hemoglobin A1c Calcium 8.9 Magnesium 2.1 Total Bilirubin 0.8 AST 58 ALT 56 H Alkaline Phosphatase 51 NT-Pro-B Natriuret Pep Total Protein 6.8 Albumin 3.6 Globulin 3.2 Albumin/Globulin Ratio 1.1 06/22/25 06/23/25 06/23/25 20:40 05:30 08:07 WBC 5.8 RBC 3.96 L Hgb 10.3 L Hct 33.0 L MCV 83.5 MCH 26.0 MCHC 31.1 RDW 25.5 H Plt Count 235 Neut % (Auto) 82.7 H Lymph % (Auto) 11.9 L [place] % (Auto) 5.3 Eos % (Auto) 0.0 L Baso % (Auto) 0.1 Neut # (Auto) 4800 Lymph # (Auto) 700 L [place] # (Auto) 300 Eos # (Auto) 0 Baso # (Auto) 0 Platelet Estimate Adequate on smear RBC Morphology See below Anisocytosis 4+ H Sodium 136 L Potassium 4.3 Chloride 101 Carbon Dioxide 23 BUN 30 H Creatinine 0.70 Estimated GFR > 60 BUN/Creatinine Ratio 42.9 H Glucose 275 H POC Whole Bld Glucose 302 H 310 H Hemoglobin A1c 6.8 H Calcium 8.7 Magnesium Total Bilirubin AST ALT Alkaline Phosphatase NT-Pro-B Natriuret Pep 1300 H Total Protein Albumin Globulin Albumin/Globulin Ratio PFSH Medical History Psoriasis (~2020) Depression Tinnitus (~1990) Hemorrhoid (~1989) Dyslipidemia HTN (hypertension) Surgical History Anesthesia History of colonoscopy (~2009) H/O colonoscopy with polypectomy (~2018) Family History Mother Diabetes mellitus Stroke Cancer Hypertension Hyperlipidemia Sister Cancer Father Cancer Social History marital status: household members: spouse occupational status: employed alcohol intake: current substance use type: does not use Assessment & Plan Time-Based Coding :: [TOTAL MINUTES] spent with patient and on the chart (including review of chart, obtaining history, exam, reviewing outside data, placing orders, documenting exam and treatment plan, and counseling patient) on [DATE]. Quality VTE Deep Vein Thrombosis/Pulmonary Embolism Present on Admission: No
[2025-06-23] MEDS: INSULIN LISPRO 100 UNIT/ML 3ML VIAL SUBCUT ×4 (08:45→21:16)
--- NOTE | 2025-06-23 08:56 | OT.IPNOTE ---
Pt states independent with OT needs and just concerned about activity tolerance while walking and to see PT later. Discharge pt for OT services.
[2025-06-23] MEDS: EZETIMIBE 10 MG TABLET PO (09:18)
[2025-06-23] MEDS: APIXABAN 5 MG TABLET PO ×2 (09:18→21:18)
[2025-06-23] MEDS: SODIUM CHLORIDE 0.9% FLUSH 10 ML IV ×2 (09:19→21:20)
[2025-06-23] MEDS: METOPROLOL ER 50 MG TABLET PO ×2 (09:20→14:26)
[2025-06-23] MEDS: FUROSEMIDE 40 MG TABLET PO (09:21)
--- NOTE | 2025-06-23 09:28 | DI.RAD.S_ITS ---
PROCEDURE: XR CHEST 1V INDICATIONS: Mycoplasma Pneumonia TECHNIQUE: One view of the chest was acquired. COMPARISON: [facility], CR, XR CHEST 1V, 09/22/2020, 16:30. [facility], CT, CT ANGIO CHEST PE PROTOCOL, 06/19/2025, 22:04. FINDINGS: Surgical changes and devices: None. Lungs and pleura: Basilar predominant nodularity, stable from prior. Mediastinum: Mediastinal contours appear normal. Heart size is normal. Bones and chest wall: No suspicious bony lesions. Overlying soft tissues appear unremarkable. IMPRESSION: Stable basilar predominant nodularity, most consistent with atypical infection. Dictated by: Nic Dunne M.D. on 06/23/2025 at 10:28 Approved by: Nic Dunne M.D. on 06/23/2025 at 10:29
[2025-06-23] MEDS: ALBUTEROL/IPRATROPIUM 3 ML AMPUL INH ×3 (09:46→19:21)
[2025-06-23] MEDS: BUDESONIDE 0.5 MG/2 ML NEB INH ×2 (09:56→19:21)
--- NOTE | 2025-06-23 11:15 | PT.IIE ---
Current Diagnoses Unspecified asthma with (acute) exacerbation (06/20/25) Surgical History (Last Reviewed 06/20/25 @ 15:11 by Elder Castillo MD) Anesthesia H/O colonoscopy with polypectomy (~2018) History of colonoscopy (~2009) Medical History (Last Reviewed 06/20/25 @ 15:11 by Elder Castillo MD) Depression Dyslipidemia Hemorrhoid (~1989) HTN (hypertension) Psoriasis (~2020) Tinnitus (~1990) Physical Therapy Inpatient Evaluation/Re-Eval M1 PT IP Prior Functional Status Start: 06/23/25 11:13 Freq: NEEDED Status: Active Protocol: Document 06/23/25 10:47 DCW (Rec: 06/23/25 11:28 DC [id number]) Medical Review Prior Functional Status Medical History Yes Reviewed Communication Makes needs known Mobility and Gait Independent Activities of Daily Independent Living and IADL's Social History Household Members spouse Living Arrangements House Number of Floors ( One Floor Floors) Number of Stairs To No stairs Enter/Railing? Additional Social Has walking sticks/walker that he has used in the past, History Comment no currently using M2 PT-IP Current Condition Start: 06/23/25 11:13 Freq: NEEDED Status: Active Protocol: Document 06/23/25 10:47 DCW (Rec: 06/23/25 11:28 DCW [id number]) Physical Therapy Current Condition Current Condition Evaluation Date 06/23/25 Treatment Diagnosis A-fib, SOB Onset Date 06/20/25 M3 PT-IP Subjective Start: 06/23/25 11:13 Freq: NEEDED Status: Active Protocol: Document 06/23/25 10:47 DCW (Rec: 06/23/25 11:28 DC [id number]) Subjective Physical Therapy Visit Type Type Initial Evaluation Visit Start Time 10:47 Visit Stop Time 11:15 Notes Pt in bed as PT enters. Agreeable to therapy. Pt presented to ED on 06/20/25 with worsening SOB, ROWE. Found to be in A-fib, as well as diagnosed with pneumonia. Is feeling better now, no longer using supplemental O2, but still notable SOB. Pt notes he just woke up as PT entered the room, mild confusion to start, momentarily believed he was in [place]. Physical Therapy Visit Comments Patient Comments I'm not usually this unstable up moving around. M4 PT-IP Mobility and Gait Start: 06/23/25 11:13 Freq: NEEDED Status: Active Protocol: Document 06/23/25 10:47 DCW (Rec: 06/23/25 11:28 DCW [id number]) PT-Bed Mobility Assessment Rolling Level of Assist Independent Supine to Sit Supine to Sit Independent Sit to Supine Sit to Supine Independent Scooting Scooting to Edge of Independent Bed PT-Transfer Assessment Sit to and From Stand Sit to and from Independent Stand Equipment Transfer Assistive None Device Orthotic/Prosthetic No Devices or Brace: Gait Assessment Gait Gait Assistance Standby Assistance Required: Distance (Feet) 260 Able to Maintain Yes Weight Bearing Status During Gait Assistive Devices Assistive Device Gait Belt Orthotic/Prosthetic No Devices or Brace: Factors Limiting Gait Function Factors Limiting Decreased Activity Tolerance,Poor Balance,Respiratory Gait Function Distress Comments Gait Comments Pt ambulated out into hallway and around [facility]. Took one standing rest break. O2 sat 97% at start of walk, 100% during rest break, and 98% upon return to room. Mild path deviation during ambulation, but no safety concerns or LOB. Did exhibit continued SOB during ambulation M5 PT-IP Objective Assessments Start: 06/23/25 11:13 Freq: NEEDED Status: Active Protocol: Document 06/23/25 10:47 DCW (Rec: 06/23/25 11:28 DCW [id number]) Orientation Orientation/Cognition Level of Alertness Confusional State Orientation Name,Age,Birthday,Date Language Function No Deficits Noted Ability Comments Mild confusion upon regarding place when first waking up, believed he was in [place], but after being reoriented to location, confusion diminished, pt became clearer. Gross Range of Motion Upper Extremity ROM Assessment Within Functional Limits Lower Extremity ROM Assessment Within Functional Limits Strength Upper Extremity Strength Assessment Within Functional Limits Lower Extremity Strength Assessment Within Functional Limits M7 PT-IP Assessment and Plan Start: 06/23/25 11:13 Freq: NEEDED Status: Active Protocol: Document 06/23/25 10:47 DCW (Rec: 06/23/25 11:28 DCW [id number]) PT Summary Assessment and Plan Summary Assessment Summary Pt exhibits independence within his room, mild path deviation during hallway ambulation, but O2 sat remained 97%-100% during PT session. Pt admitted he felt slightly more wobbly than is typical for him. At this point, pt appears to be largely independent with all functional tasks, may benefit from use of his walking sticks upon return home until he feels a little more stable,. Pt lives with his , who is able to assist as needed. Pt does not appear to require any further in-patient PT at this time. Frequency of Treatment Frequency Of Discharge Treatment Recommendations To Nursing Amount of Assist Independent,Standby Assistance Needed Discharge Recommendations PT Discharge Home with Assistance Recommendations Other Discharge Pt should use walking sticks/walker at home until more Recommendations stable Transportation Needs Private Vehicle at Discharge
[2025-06-23] MEDS: MELATONIN 3 MG TABLET 9 MG PO (21:18)
[2025-06-23] MEDS: PRAVASTATIN 20 MG TABLET PO (21:18)
[2025-06-23] MEDS: INSULIN GLARGINE 100 UNIT/ML 3ML PEN 25 UNIT SUBCUT (21:18)
[2025-06-23] MEDS: METOPROLOL ER 50 MG TABLET 100 MG PO (21:18)
[2025-06-23] MEDS: ACETAMINOPHEN 325 MG TABLET 650 MG PO (21:19)
[2025-06-24] VITALS (15 sets, daily range): BP systolic 120–146; BP diastolic 64–117; PULSE 70–107; RESP 18–20; TEMP 36.2–36.4; O2SAT 94–100
[2025-06-24] MEDS: methylPREDNISolone succ 125 MG/2 ML VIAL 60 MG IV ×2 (03:00→08:11)
[2025-06-24] MEDS: SODIUM CHLORIDE 0.9% FLUSH 10 ML IV ×3 (03:06→20:44)
[2025-06-24] MEDS: INSULIN LISPRO 100 UNIT/ML 3ML VIAL SUBCUT ×4 (08:01→20:41)
[2025-06-24] MEDS: FUROSEMIDE 40 MG TABLET PO (08:12)
[2025-06-24] MEDS: APIXABAN 5 MG TABLET PO ×2 (08:12→20:43)
[2025-06-24] MEDS: METOPROLOL ER 50 MG TABLET 100 MG PO ×2 (08:12→20:43)
[2025-06-24] MEDS: BUDESONIDE 0.5 MG/2 ML NEB INH ×2 (08:30→18:19)
[2025-06-24] MEDS: ALBUTEROL/IPRATROPIUM 3 ML AMPUL INH ×4 (08:31→18:19)
--- NOTE | 2025-06-24 09:33 | PM.PN.IH.1 ---
Subjective Subjective Date Patient Seen: 06/24/25 Time Patient Seen: 08:05 Interval history: 70 years old male with history of atrial fibrillation on Eliquis, COPD, CAD, chronic cough, alcohol abuse, hyperlipidemia, hypertension, diabetes mellitus type 2, presented to the ER with shortness of breath, generalized weakness, orthopnea, productive cough, congestion, nausea and vomiting in the last several days. Denies any chest pain, fever, abdominal pain, diarrhea or dysuria. EMS found the patient in A-fib with RVR and was given 15 mg IV metoprolol. In the ER he was started on Cardizem drip. Laboratory showed WBC 6, hemoglobin 10.7, D-dimer 1584, sodium 133, potassium 4.5, creatinine 0.74, glucose 143, lactate 1.9, 2.1, AST 71, ALT 44, troponin negative, BNP 2590 procalcitonin 0.24, UA negative. EKG shows atrial fibrillation with RVR with rate of 169. CT of the chest shows multifocal pneumonia and no PE. The patient was given ceftriaxone, azithromycin, diltiazem 10 mg IV and was started on Cardizem drip. 06/20: Has been short of breath and had dyspnea on exertion for about 5 days. He was also had a cough, nonproductive. No fevers, or chills. No chest pain. He denies any leg edema. He does have history of asthma, and sleep apnea and also uses oxygen at home. He lives on [facility], with his . He was on maximum diltiazem drip in the ED, we increased his oral diltiazem tablets this morning and his heart rate is improved. He has a history of heavy thank you very much alcohol use in the past. He has only been drinking about 2 drinks a day recently. He denies a history of alcohol withdrawal and is alert and oriented to person, place and time. 06/21: He is now off diltiazem drip. He is short of breath when he goes to the bathroom. The BMP and liver function tests are normal. He continues on ceftriaxone and Solu-Medrol. 06/22: He mentions severe shortness breath with minimal exertion. His echocardiogram is reviewed. He had a 45-50% ejection fraction. He is wheezing heavily so these symptoms are likely related to COPD? His latest hemoglobin was 10.7 on 06/19. We will be putting him on Lasix for 2 days as his legs have swollen with 2+ edema. 06/23: His respiratory panel was positive for mycoplasma pneumonia. It looks like he was treated with azithromycin initially. We are confirming that he had a full 3 day treatment course. The ceftriaxone can be stopped. We will repeat the chest x-ray today. He seems to be breathing just slightly better today. His edema is still quite impressive. He is talking faster, planning to walk in the hallway, and seems to have turned the corner yesterday. The hemoglobin is 10.3. The BNP is normal. The glucose is 310 with an ALT of 56. We will increase the Lantus from 15 units up to 25 units. The BNP was 1300. 06/24: He states he feels well. He has persistent tachycardia when he gets up and walks. He states this is normal for him, that he has had exercise-induced tachycardia in the setting of his underlying atrial fibrillation for several months at least. Metoprolol was increased to 100 mg twice daily (home dose) yesterday, and he continues on diltiazem 60 mg every 6 hours. NAD, alert and oriented, fluent speech, calm. Normocephalic skull Lungs are clear to auscultation bilaterally today. Heart irregular, no murmur gallop or rub. Extremities have 1+ pitting bilateral ankle edema Skin is free of rash or lesions. Joints are not swollen or deformed. Judgment appears to be normal. IMAGING: Echo: Interpretation Summary Technically difficult study secondary to poor acoustic windows. No intracardiac echo contrast utilized. - The left ventricular contractility is mildly compromised. Estimate ejection fraction is approximately 45 to 50% with no obvious segmental wall motion abnormalities. Mild concentric LVH. Unable to comment on diastolic function. - The right ventricle contractility appears to be normal. - All cardiac chambers appears to be grossly normal in size. - Tricuspid regurgitation noted on spectral display only with estimated pulmonary systolic artery pressures of 47 mmHg. - No obvious intracardiac shunts. - No obvious intracardiac masses nor thrombi. - No hemodynamically significant pericardial effusion. - Elevated right-sided filling pressures. Conclusion: Mildly compromised left ventricular systolic function with no severe valvular abnormalities per Doppler interrogation. Chest CTA: Multifocal areas of prominent centrilobular tree-in-bud nodularity and patchy consolidation, most prominent in the right lower lobe, left lower lobe, and lingula suggestive of atypical infection, or aspiration/airways spread of infection. No pulmonary embolus. PFT from May 2025: FVC is 79% predicted, FEV1 is 65% predicted. A/P: 1. Mycoplasma pneumonia, active. 2. Asthma exacerbation, active. 3. Atrial fibrillation with rapid response, improving. 4. Possible alcohol abuse, active. 5. Hypertension, active. 6. Psoriasis, active. 7. Cardiomyopathy PLAN: AFib rate inadequately controlled, increase diltiazem to 90 mg every 6 hours, continue metoprolol 100 mg b.i.d. now that wheezing has improved Apixaban. Methylprednisolone 60 IV q.6 3 day course of azithromycin for the mycoplasma atypical pneumonia. Completed ceftriaxone course Increase Lantus to 35 units nightly, high-dose sliding scale lispro coverage Continue bronchodilators. Oxygen, wean as able. Monitor for evidence of alcohol withdrawal. Lasix 40 mg daily Full resuscitation is proxy decision maker, they live on [facility]. Possible discharge home tomorrow if doing well Exam Vital Signs (past 8 hours): - 06/24/25 03:00 06/24/25 05:34 06/24/25 08:00 Temperature 97.2 F L 97.4 F L Pulse Rate 72 72 71 Respiratory Rate 20 18 Blood Pressure 120/74 120/74 121/64 Pulse Oximetry 95 97 Oxygen Delivery Method Oxygen Flow Rate 0 0 06/24/25 08:12 06/24/25 08:41 Temperature Pulse Rate 71 90 Respiratory Rate 18 Blood Pressure 121/64 Pulse Oximetry 98 Oxygen Delivery Method Room Air Oxygen Flow Rate Fraction of Inspired Oxygen 24 SaO2/FiO2 Ratio 400 Oxygen Delivery Method Room Air Oxygen Flow Rate 0 Objective Labs 06/23/25 05:30 06/23/25 05:30 Labs: Laboratory Results - last 24 hr 06/23/25 06/23/25 06/24/25 11:51 19:49 03:14 POC Whole Bld Glucose 277 H 368 H 256 H D 06/24/25 07:40 POC Whole Bld Glucose 253 H PFS Medical History Psoriasis (~2020) Depression Tinnitus (~1990) Hemorrhoid (~1989) Dyslipidemia HTN (hypertension) Surgical History Anesthesia History of colonoscopy (~2009) H/O colonoscopy with polypectomy (~2018) Family History Mother Diabetes mellitus Stroke Cancer Hypertension Hyperlipidemia Sister Cancer Father Cancer Social History marital status: household members: spouse occupational status: employed alcohol intake: current substance use type: does not use Assessment & Plan Time-Based Coding :: [TOTAL MINUTES] spent with patient and on the chart (including review of chart, obtaining history, exam, reviewing outside data, placing orders, documenting exam and treatment plan, and counseling patient) on [DATE]. 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
[2025-06-24] MEDS: MELATONIN 3 MG TABLET 9 MG PO (20:43)
[2025-06-24] MEDS: INSULIN GLARGINE 100 UNIT/ML 3ML PEN 25 UNIT SUBCUT (20:43)
[2025-06-24] MEDS: BENZONATATE 100 MG CAPSULE PO (20:43)
[2025-06-24] MEDS: PRAVASTATIN 20 MG TABLET PO (20:43)
[2025-06-24] MEDS: ACETAMINOPHEN 325 MG TABLET 650 MG PO (20:44)
[2025-06-25] VITALS (7 sets, daily range): BP systolic 99–142; BP diastolic 73–91; PULSE 76–101; RESP 16–20; TEMP 36.2–36.4; O2SAT 96–99
[2025-06-25 05:04] LABS: Blood Urea Nitrogen 31 mg/dL (9-20); Calcium 8.4 mg/dL (8.4-10.2); Carbon Dioxide 27 mmol/L (22-32); Chloride 101 mmol/L (98-107); Estimated Glomerular Filt Rate > 60 mL/min (>60); Glucose 230 mg/dL (70-99); HEMOLYSIS 16 (0-50); Potassium 4.1 mmol/L (3.4-5.1); Sodium 136 mmol/L (137-145)
[2025-06-25] MEDS: ALBUTEROL/IPRATROPIUM 3 ML AMPUL INH (07:22)
[2025-06-25] MEDS: BUDESONIDE 0.5 MG/2 ML NEB INH (07:22)
[2025-06-25] MEDS: FUROSEMIDE 40 MG TABLET PO (08:12)
[2025-06-25] MEDS: APIXABAN 5 MG TABLET PO (08:12)
[2025-06-25] MEDS: METOPROLOL ER 50 MG TABLET 100 MG PO (08:12)
[2025-06-25] MEDS: SODIUM CHLORIDE 0.9% FLUSH 10 ML IV (08:13)
[2025-06-25] MEDS: EZETIMIBE 10 MG TABLET PO (08:13)
[2025-06-25] MEDS: INSULIN LISPRO 100 UNIT/ML 3ML VIAL SUBCUT (08:14)
--- NOTE | 2025-06-25 09:17 | PC.NURSE ---
Day shift: Paperwork signed and all questions answered. Pt has all personal belongings. They plan to catch the 1000 boat back to [place] and they have a priority pass in hand. New MD scripts sent to Pt's pharm on [facility]. Left unit at approx 0930 via . Pt and Spouse in no complaints or concerns at this time. Encouraged to call PCP tomorrow and set up appointment.
--- NOTE | 2025-06-25 11:37 | P.DS_ITS ---
History of Present Illness History of Present Illness Date Patient Seen: 06/25/25 Time Patient Seen: 08:18 Chief complaint: Rapid afib Narrative: 70 years old male with history of atrial fibrillation on Eliquis, COPD, CAD, chronic cough, alcohol abuse, hyperlipidemia, hypertension, diabetes mellitus type 2, presented to the ER with shortness of breath, generalized weakness, orthopnea, productive cough, congestion, nausea and vomiting in the last several days. Denies any chest pain, fever, abdominal pain, diarrhea or dysuria. EMS found the patient in A-fib with RVR and was given 15 mg IV metoprolol. In the ER he was started on Cardizem drip. Laboratory showed WBC 6, hemoglobin 10.7, D-dimer 1584, sodium 133, potassium 4.5, creatinine 0.74, glucose 143, lactate 1.9, 2.1, AST 71, ALT 44, troponin negative, BNP 2590 procalcitonin 0.24, UA negative. EKG shows atrial fibrillation with RVR with rate of 169. CT of the chest shows multifocal pneumonia and no PE. The patient was given ceftriaxone, azithromycin, diltiazem 10 mg IV and was started on Cardizem drip. Has been short of breath and had dyspnea on exertion for about 5 days. He was also had a cough, nonproductive. No fevers, or chills. No chest pain. He denies any leg edema. He does have history of asthma, and sleep apnea and also uses oxygen at home. He lives on [facility], with his . He was on maximum diltiazem drip in the ED, we increased his oral diltiazem tablets this morning and his heart rate is improved. He has a history of heavy thank you very much alcohol use in the past. He has only been drinking about 2 drinks a day recently. He denies a history of alcohol withdrawal and is alert and oriented to person, place and time. Discharge Providers Provider Date of admission: 06/20/25 01:18 Discharge Date: 06/25/25 Primary care physician: Maximus Salguero MD Consults: 06/22/25 15:47 Consult to Occupational Therapy Evaluate & Treat Comment: Physician Instructions: Evaluate and treat Consult to Physical Therapy Evaluate & Treat Comment: Physician Instructions: Evaluate and Treat Discharge provider: Carlos Noble MD Summary Hospital Course Discharge Diagnosis: 1. Mycoplasma pneumonia. 2. Asthma exacerbation due to #1. 3. Atrial fibrillation with rapid ventricular response. 4. Possible alcohol abuse. 5. Hypertension. 6. Psoriasis. 7. Cardiomyopathy. Hospital Course: The patient was admitted and treated with broad-spectrum antibiotics, narrowed to azithromycin for 3 day course, and frequently administered bronchodilators and IV steroids. He demonstrated gradual but progressive improvement over subsequent days. His heart rate was initially tachycardic at rest but improved to a normal resting heart rate. However, with getting up and walking he exhibited significant tachycardia into the 130s to 160s. His diltiazem dose was increased during hospitalization to continue after discharge. Follow-up with Cardiology is recommended as this appears to have been chronic pre-existing his pneumonia presentation. No other issues arose. The patient acknowledged understanding, agreement and appreciation of this plan of care, and agreed to call back with any questions or concerns. Status at Discharge Cognitive/behavioral status at discharge: oriented Functional status at discharge: independent ambulation Overall status at discharge: patient is progressing back to baseline Exam Vital Signs (past 8 hours): - 06/25/25 04:00 06/25/25 06:02 06/25/25 07:27 Temperature 97.5 F L Pulse Rate 76 96 H 84 Respiratory Rate 20 18 Blood Pressure 132/91 H 142/88 H Pulse Oximetry 96 99 Oxygen Delivery Method Room Air Oxygen Flow Rate 0 06/25/25 08:00 06/25/25 08:12 Temperature 97.2 F L Pulse Rate 81 Respiratory Rate 16 Blood Pressure 99/73 142/88 H Pulse Oximetry 98 Oxygen Delivery Method Oxygen Flow Rate 0 Fraction of Inspired Oxygen 24 SaO2/FiO2 Ratio 400 Oxygen Delivery Method Room Air Oxygen Flow Rate 0 Narrative Exam Narrative: NAD, alert and oriented, fluent speech, calm. Normocephalic skull Lungs are clear to auscultation bilaterally today. Heart irregular, no murmur gallop or rub. Extremities have 1+ pitting bilateral ankle edema Skin is free of rash or lesions. Joints are not swollen or deformed. Judgment appears to be normal. Objective Imaging *: Radiologist's impression: Echo: Interpretation Summary Technically difficult study secondary to poor acoustic windows. No intracardiac echo contrast utilized. - The left ventricular contractility is mildly compromised. Estimate ejection fraction is approximately 45 to 50% with no obvious segmental wall motion abnormalities. Mild concentric LVH. Unable to comment on diastolic function. - The right ventricle contractility appears to be normal. - All cardiac chambers appears to be grossly normal in size. - Tricuspid regurgitation noted on spectral display only with estimated pulmonary systolic artery pressures of 47 mmHg. - No obvious intracardiac shunts. - No obvious intracardiac masses nor thrombi. - No hemodynamically significant pericardial effusion. - Elevated right-sided filling pressures. Conclusion: Mildly compromised left ventricular systolic function with no severe valvular abnormalities per Doppler interrogation. Chest CTA: Multifocal areas of prominent centrilobular tree-in-bud nodularity and patchy consolidation, most prominent in the right lower lobe, left lower lobe, and lingula suggestive of atypical infection, or aspiration/airways spread of infection. No pulmonary embolus. Labs 06/23/25 05:30 06/25/25 04:40 Labs: Laboratory Results - last 24 hr 06/24/25 06/24/25 06/25/25 16:17 20:18 04:40 Sodium 136 L Potassium 4.1 Chloride 101 Carbon Dioxide 27 BUN 31 H Creatinine 0.57 L Estimated GFR > 60 BUN/Creatinine Ratio 54.4 H Glucose 230 H POC Whole Bld Glucose 276 H 357 H Calcium 8.4 06/25/25 07:26 Sodium Potassium Chloride Carbon Dioxide BUN Creatinine Estimated GFR BUN/Creatinine Ratio Glucose POC Whole Bld Glucose 215 H D Calcium PFSH Medical History Psoriasis (~2020) Depression Tinnitus (~1990) Hemorrhoid (~1989) Dyslipidemia HTN (hypertension) Surgical History Anesthesia History of colonoscopy (~2009) H/O colonoscopy with polypectomy (~2018) Family History Mother Diabetes mellitus Stroke Cancer Hypertension Hyperlipidemia Sister Cancer Father Cancer Social History marital status: household members: spouse occupational status: employed alcohol intake: current substance use type: does not use Discharge Plan Discharge Plan Patient Disposition: Home Provider Discharge Comment: Followup with Dr. Salguero 1 week Discharge orders & Medications Prescriptions: New diltiazem HCl 360 mg capsule,extended release 24hr 360 mg PO DAILY Qty: 30 0RF prednisone 10 mg tablet 10 mg PO DAILY Qty: 20 0RF Rx Instructions: administer with food or milk, take 4 tabs daily x 2 days, then 3 tabs daily x 2 days, then 2 tabs daily x 2 days, then 1 tab daily x 2 days benzonatate 100 mg Capsule 100 mg PO TID PRN (Reason: Cough) Qty: 30 0RF Continued metoprolol succinate 100 mg tablet extended release 24 hr 100 mg PO BID Qty: 180 1RF Eliquis 5 mg tablet 5 mg PO BID Qty: 180 1RF Mounjaro 5 mg/0.5 mL pen injector 5 mg SUBCUT QWEEK Qty: 2 4RF Trelegy Ellipta 200-62.5-25 mcg blister with device 1 inh inhalation DAILY Qty: 60 5RF albuterol sulfate 90 mcg/actuation HFA aerosol inhaler 2 puff inhalation Q6H PRN (Reason: shortness of breath or wheezing) Qty: 8.5 5RF pravastatin 20 mg tablet 20 mg PO BEDTIME Qty: 90 3RF ezetimibe 10 mg tablet 10 mg PO DAILY Qty: 90 3RF Dulera 200-5 mcg/actuation HFA aerosol inhaler 2 puff inhalation BID Qty: 8.8 3RF Discontinued diltiazem HCl 30 mg tablet 30 mg PO BID Qty: 180 1RF Follow up/Referrals: Maximus Salguero MD [Primary Care Provider, [facility]] Visit Report/Discharge Packet Instructions: Asthma -- Adult, DI for Pneumonia -- Adult, How to Prevent Falls Stand Alone Forms: Patient Portal/API, Stroke Signs & Symptoms Discharge Data Primary Care Provider: Maximus Salguero Quality VTE Deep Vein Thrombosis/Pulmonary Embolism Present on Admission: No MIPS - Admit I confirm the patient?s Advance Care Plan is present, Code status is documented, Surrogate decision maker is in patient?s record [If Yes, STOP here]: Yes MIPS - Meds 'Current medications' to include all prescriptions, [id number] products, herbals, cannabis/cannabidiol products, and vitamin/mineral/dietary (nutritional) supplements. I have utilized all available resources to obtain, update, or review the patient?s current medications. [If Yes, STOP here]: Yes MIPS - DC The patient has a history of heart transplant or Left Ventricular Assist Device (LVAD). If yes, STOP here.: No The patient has current or prior documentation of left ventricular ejection fraction (LVEF) less than or equal to 40%, or moderate or severely depressed left ventricular systolic function.: No A. The patient was prescribed or already taking an Angiotensin-Converting Enzyme (ZOIE) Inhibitor, or Angiotensin Receptor Sabrina (ARB).: No B. The patient was prescribed or already taking a beta-sabrina. [If Yes to Both A & B, STOP here]: Yes Patient not prescribed/taking ZOIE or ARB, no reason given.: No Patient not prescribed/taking beta-sabrina, no reason given.: No PROFEE Charge Codes Discharge inpatient/observation: [id number]
== END 2025-06-25 09:25 | disposition home or self-care (01) | DRG 194 ==
LOC: ED 23:18 → AC 06-20 01:18 → ICU 06-20 12:08 → AC 06-21 09:06
PROVIDERS: Emergency Medicine; Family Medicine; Hospitalist; Admitting Provider Internal Medicine; Emergency Provider Student in an Organized Health Care Education/Training Program; PCP Family Medicine; Referring Provider Student in an Organized Health Care Education/Training Program; Visit Provider Internal Medicine
DX: J15.7 Pneumonia due to Mycoplasma pneumoniae (principal); I42.9 Cardiomyopathy, unspecified; J45.901 Unspecified asthma with (acute) exacerbation; J44.0 Chronic obstructive pulmonary disease with (acute) lower respiratory infection; I48.91 Unspecified atrial fibrillation; E78.5 Hyperlipidemia, unspecified; F10.10 Alcohol abuse, uncomplicated; R00.0 Tachycardia, unspecified; L40.9 Psoriasis, unspecified; I10 Essential (primary) hypertension; I25.10 Atherosclerotic heart disease of native coronary artery without angina pectoris; E11.9 Type 2 diabetes mellitus without complications; Z79.01 Long term (current) use of anticoagulants; Z79.85 Long-term (current) use of injectable non-insulin antidiabetic drugs
CPT/HCPCS: 36415; 71045; 71275; 80048; 80053; 81001; 82962; 83036; 83605; 83735; 83880; 84145; 84443; 84484; 85007; 85025; 85379; 87040; 87633; 87797; 93005; 93010; 93306; 94640; 94660; 94760; 94762; 96365; 96366; 96368; 96375; 97116; 97161; 99284; J0696; J1815; J2919; J7050; J7060; Q9967